=== PATIENT | female | born 1990 | race Caucasian/White ===

== ENCOUNTER 2016-09-29 21:31 | Emergency (ER) | payer OTHER ==
[~2016-09-29 21:31] MED LIST: /MOM400 PO; ACET50TA PO; ALBU17IN INH; AMOX500T PO; CETI10TA3 PO; DIPH25CA PO; GUAI10EL PO; IBUP80TA PO; PERC5TAB6 PO; PRENTAB43 PO; ZOLO50TA PO; no home meds
[2016-09-30] MEDS ORDERED: MAGNESIUM CITRATE 300 ML BTL As Ordered ONE (00:01)
--- NOTE | 2016-09-30 00:06 | EDDOCDS ---
Nurse's Notes [facility] Name: Cherelle Casillas Age: 25 yrs Sex: Female : 1990 Arrival Date: 09/29/2016 Time: 21:31 Bed TR7 Private MD: Diagnosis: Abdominal and pelvic pain-lower Presentation: 09/29 21:41 Presenting complaint: Patient states: I think I have a kidney infection, I've had pain [facility] right where my kidneys are and I keep getting chills and flushed, hurts worse when I pee and when I sit down and stand up. Acute neurological deficits are not present. Mechanism of Injury: No Mechanism of Injury. Adult Sepsis Screening: The patient does not have new or worsening altered mentation. Patient's respiratory rate is less than 22. Systolic blood pressure is greater than 100. Patient has a qSOFA score of 0- Negative Sepsis Screen. Suicide/Homicide risk assessment- the patient denies having any suicidal and/or homicidal ideations and does not present with any other emotional, behavioral or mental health complaints. 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 Transition of care: patient was not received from another setting of care. 21:41 Acuity: DEE Level 3 [facility] 21:41 Method Of Arrival: Walkin/Carried/Asstd [facility] Triage Assessment: 21:43 General: Appears in no apparent distress, comfortable, Behavior is appropriate for age, [facility] cooperative. Pain: Location: back Pain currently is 0 out of 10 on a pain scale. At worst was 5 out of 10 on a pain scale. HIV screening NA for this visit Offered previously. Respiratory: No deficits noted. Derm: Skin is pink, warm & dry. Musculoskeletal: Range of motion intact in all extremities. DIRECTOR TEEN POST: 21:43 LMP 09/22/2016 [facility] Historical: - Allergies: Aleve (Swelling); Naproxen; - PMHx: Anxiety; Depression; - PSHx: Tonsillectomy; Cholecystectomy; Tubal ligation; full teeth extraction; - Social history: Smoking status: Patient uses tobacco products, heavy tobacco smoker. No barriers to communication noted. - Family history: Not pertinent. - : The pt / caregiver states he / she is not on anticoagulants. Home medication list is obtained from the patient. - Exposure Risk Screening:: None identified. Screenin/07 00:04 Screening information is obtained from the patient. Fall risk: No risks identified. cz Assistance ADL's: requires no assistance with activities of daily living. Abuse/DV Screen: The patient / caregiver reports he/she is: not in a situation that causes fear, pain or injury. Nutritional screening: No deficits noted. home support is adequate. Assessment: 00:04 Reassessment: Patient appears in no apparent distress at this time. Patient states cz symptoms have improved. Vital Signs: 09/29 21:32 BP 154 / 81; Pulse 88; Resp 18; Temp 97.0(O); Pulse Ox 100% on R/A; Weight 85.09 kg kb5 (M); Height 5 ft. 2 in. (157.48 cm); Pain 5/10; 23:58 BP 140 / 78; Pulse 66; Resp 16; Temp 95.9(T); Pulse Ox 99% ; cz 21:32 Body Mass Index 34.31 (85.09 kg, 157.48 cm) kb5 ED Course: 21:32 Patient visited by Sukumar Mojica PCA. kb5 21:32 Patient moved to Waiting kb 21:34 Patient visited by Sukumar Mojica PCA. kb5 21:42 Triage Initiated cj 21:44 Patient moved to Pre RCE cz 22:54 Patient moved to Triage 1 jb5 22:56 Patient visited by Pauly Salazar PCA. jb5 23:[address] [facility] cc[facility] 23:06 Krishan Miramontes DO is Attending Physician. cc10 23:[address]a [address] PA-C. cc10 23:[address] Asa [address] PA-C. cc10 23:13 Patient moved to TR4 cz 23:55 Patient moved to PR2 / 26 cz 09/30 00:04 Patient moved to TR7 cz 00:04 The patient / caregiver is instructed regarding the plan of care and ED course. cz 00:04 No IV's were initiated during this patient's visit. No procedures done that require cz assistance. Administered Medications: 00:04 Drug: Magnesium Citrate 300 ml [magnesium citrate oral solution (300 mL)] Route: PO; cz Order Results: Lab Order: UA; SPEC'M 09/29/16 23:13 Test: APPEARANCE, URINE; Value: HAZY; Range: CLEAR; Status: F Test: COLOR, URINE; Value: YELLOW; Range: YELLOW; Status: F Test: PH,URINE; Value: 6.0; Range: 5.0-9.0; Units: UNITS; Status: F Test: SPECIFIC GRAVITY URINE AUTO; Value: 1.018; Range: 1.002-1.035; Status: F Test: PROTEIN, URINE AUTO; Value: NEGATIVE; Range: NEGATIVE; Units: mg/dL; Status: F Test: GLUCOSE, URINE (UA) AUTO; Value: NEGATIVE; Range: NEGATIVE; Units: mg/dL; Status: F Test: KETONE, URINE AUTO; Value: NEGATIVE; Range: NEGATIVE; Units: mg/dL; Status: F Test: UROBILINOGEN, URINE AUTO; Value: 0.2; Range: 0.0-2.0; Units: mg/dL; Status: F Test: BILIRUBIN, URINE AUTO; Value: NEGATIVE; Range: NEGATIVE; Status: F Test: NITRITE, URINE AUTO; Value: NEGATIVE; Range: NEGATIVE; Status: F Test: LEUKOCYTE ESTERASE, URINE AUTO; Value: NEGATIVE; Range: NEGATIVE; Status: F Test: BLOOD, URINE BLOOD; Value: NEGATIVE; Range: NEGATIVE; Status: F Test: WBC, URINE AUTO; Value: 0; Range: 0-3; Units: /HPF; Status: F Test: RBC, URINE AUTO; Value: 2; Range: 0-3; Units: /HPF; Status: F Test: BACTERIA, URINE AUTO; Value: NEGATIVE; Range: NEGATIVE; Status: F Test: SQUAMOUS EPITHELIAL CELL UR AU; Value: 5; Range: 0-6; Units: /HPF; Status: F Test: MUCUS, URINE; Value: SMALL; Range: NEGATIVE; Status: F Test: HYALINE CAST, URINE AUTO; Value: 0; Range: 0-1; Units: /LPF; Status: F Outcome: 09/29 23:59 Discharge ordered by Provider. cc10 09/30 00:04 Discharge Assessment: Patient awake, alert and oriented x 3. No cognitive and/or cz functional deficits noted. Patient verbalized understanding of disposition instructions. patient administered narcotics - no. The following High Risk Discharge criteria are identified: None. Discharged to home ambulatory, with friend. Condition: stable. Discharge instructions given to patient, Instructed on discharge instructions, follow up and referral plans. Demonstrated understanding of instructions, Pt was receptive of discharge instructions/ teaching. No special radiology studies were completed. Property :Personal belongings accompany Pt. 00:05 Patient left the ED. veronique Signatures: Roni Pavon, RN RN Pauly Yo, ELEMENTARY SCHOOL TEACHER'S AIDE ELEMENTARY SCHOOL TEACHER'S AIDE jb5 Sukumar Mojica, ELEMENTARY SCHOOL TEACHER'S AIDE ELEMENTARY SCHOOL TEACHER'S AIDE kb5 Evonne Vidal RN RN Asa Herrera, PA-C PA-C cc10 MTDD
--- NOTE | 2016-09-30 00:06 | EDDOCDS ---
Physician Documentation [facility] Name: Cherelle Casillas Age: 25 yrs Sex: Female : 1990 Arrival Date: 09/29/2016 Time: 21:31 Bed TR7 Private MD: Disposition: 09/29/16 23:59 Discharged to Home/Self Care. Impression: Abdominal and pelvic pain - lower. - Condition is Stable. - Discharge Instructions: Constipation, Adult. - Medication Reconciliation form. - Follow up: Emergency Department; When: As needed; Reason: Worsening of conditions. Follow up: Private Physician; When: Call to arrange an appointment; Reason: Wound/Symptom Recheck, Recheck today's complaints, Worsening of conditions, Continuance of care. - Problem is new. - Symptoms are unchanged. Historical: - Allergies: Aleve (Swelling); Naproxen; - PMHx: Anxiety; Depression; - PSHx: Tonsillectomy; Cholecystectomy; Tubal ligation; full teeth extraction; - Social history: Smoking status: Patient uses tobacco products, heavy tobacco smoker. No barriers to communication noted. - Family history: Not pertinent. - : The pt / caregiver states he / she is not on anticoagulants. Home medication list is obtained from the patient. - Exposure Risk Screening:: None identified. 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 2 in. (157.48 cm); Pain 5/10; 23:58 BP 140 / 78; Pulse 66; Resp 16; Temp 95.9(T); Pulse Ox 99% ; cz 21:32 Body Mass Index 34.31 (85.09 kg, 157.48 cm) kb5 MDM: 23:11 UA Ordered. EDMS 23:12 Abdomen, Flat\E\Upright,PA Chest Ordered. EDMS 23:55 UA Reviewed. cc10 23:58 Magnesium Citrate Liquid 300 ml PO once; Dispense home with pt. ordered. cc10 09/30 00:04 Financial registration complete. [facility] Administered Medications: 00:04 Drug: Magnesium Citrate 300 ml [magnesium citrate oral solution (300 mL)] Route: PO; cz Signatures: Dispatcher [employer] Roni Owen, EUGENE RN Evonne Kebede RN RN Asa Herrera PA-C PA-C [facility] Hortencia De Santiago [facility] MTDD
--- NOTE | 2016-09-30 08:39 | REP ---
Abdominal series: Three views. History: Abdominal pain. Comparison chest x-ray August 11, 2013. Findings: Upright chest radiograph is normal. There is no evidence of infiltrate or free subdiaphragmatic air. Heart size is normal. Supine and erect views of the abdomen show tubal ligation clamps bilaterally in the pelvis and clips in the right upper quadrant of the abdomen. The bowel gas pattern is normal with air and stool in a nondistended colon. Psoas margins and flank stripes are intact. No mass, organomegaly or pathologic calcification is seen. Impression: Status post cholecystectomy in bilateral tubal ligation clips. Otherwise negative abdominal series. Signed by Andrzej Russell MD 09/30/2016 08:48 A
--- NOTE | 2016-10-03 10:14 | EDDOCDS ---
Nurse's Notes [facility] Name: Cherelle Casillas Age: 25 yrs Sex: Female : 1990 Arrival Date: 09/29/2016 Time: 21:31 Bed TR7 Private MD: Diagnosis: Abdominal and pelvic pain-lower Presentation: 09/29 21:41 Presenting complaint: Patient states: I think I have a kidney infection, I've had pain [facility] right where my kidneys are and I keep getting chills and flushed, hurts worse when I pee and when I sit down and stand up. Acute neurological deficits are not present. Mechanism of Injury: No Mechanism of Injury. Adult Sepsis Screening: The patient does not have new or worsening altered mentation. Patient's respiratory rate is less than 22. Systolic blood pressure is greater than 100. Patient has a qSOFA score of 0- Negative Sepsis Screen. Suicide/Homicide risk assessment- the patient denies having any suicidal and/or homicidal ideations and does not present with any other emotional, behavioral or mental health complaints. 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 Transition of care: patient was not received from another setting of care. 21:41 Acuity: DEE Level 3 [facility] 21:41 Method Of Arrival: Walkin/Carried/Asstd [facility] Triage Assessment: 21:43 General: Appears in no apparent distress, comfortable, Behavior is appropriate for age, [facility] cooperative. Pain: Location: back Pain currently is 0 out of 10 on a pain scale. At worst was 5 out of 10 on a pain scale. HIV screening NA for this visit Offered previously. Respiratory: No deficits noted. Derm: Skin is pink, warm & dry. Musculoskeletal: Range of motion intact in all extremities. 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 No barriers to communication noted. - Family history: Not pertinent. - : The pt / caregiver states he / she is not on anticoagulants. Home medication list is obtained from the patient. - Exposure Risk Screening:: None identified. Screenin/07 00:04 Screening information is obtained from the patient. Fall risk: No risks identified. cz Assistance ADL's: requires no assistance with activities of daily living. Abuse/DV Screen: The patient / caregiver reports he/she is: not in a situation that causes fear, pain or injury. Nutritional screening: No deficits noted. home support is adequate. Assessment: 00:04 Reassessment: Patient appears in no apparent distress at this time. Patient states cz symptoms have improved. Vital Signs: 09/29 21:32 BP 154 / 81; Pulse 88; Resp 18; Temp 97.0(O); Pulse Ox 100% on R/A; Weight 85.09 kg kb5 (M); Height 5 ft. 2 in. (157.48 cm); Pain 5/10; 23:58 BP 140 / 78; Pulse 66; Resp 16; Temp 95.9(T); Pulse Ox 99% ; cz 21:32 Body Mass Index 34.31 (85.09 kg, 157.48 cm) kb5 ED Course: 21:32 Patient visited by Sukumar Mojica PCA. kb5 21:32 Patient moved to Waiting kb5 21:34 Patient visited by Sukumar Mojica PCA. kb5 21:42 Triage Initiated cjh 21:44 Patient moved to Pre RCE cz 22:54 Patient moved to Triage 1 jb5 22:56 Patient visited by aPuly Salazar PCA. jb5 23:[address] [facility] cc[facility] 23:06 Krishan Miramontes DO is Attending Physician. cc10 23:[address] Asa [address] PA-C. cc10 23:06 Patient visited [address] Asa [address] PA-C. cc10 23:13 Patient moved to TR4 cz 23:55 Patient moved to PR2 / 26 cz 09/30 00:04 Patient moved to TR7 cz 00:04 The patient / caregiver is instructed regarding the plan of care and ED course. cz 00:04 No IV's were initiated during this patient's visit. No procedures done that require cz assistance. 02:56 [facility] Payment Agreement was scanned into [employer] and attached to record. sl 08:10 T-Sheet-- Draft Copy was scanned into MEDHOST and attached to record. [facility] 08:42 Abdomen, Flat\E\Upright,PA Chest Returned. EDMS Administered Medications: 00:04 Drug: Magnesium Citrate 300 ml [magnesium citrate oral solution (300 mL)] Route: PO; cz Order Results: Lab Order: UA; SPEC'M 09/29/16 23:13 Test: APPEARANCE, URINE; Value: HAZY; Range: CLEAR; Status: F Test: COLOR, URINE; Value: YELLOW; Range: YELLOW; Status: F Test: PH,URINE; Value: 6.0; Range: 5.0-9.0; Units: UNITS; Status: F Test: SPECIFIC GRAVITY URINE AUTO; Value: 1.018; Range: 1.002-1.035; Status: F Test: PROTEIN, URINE AUTO; Value: NEGATIVE; Range: NEGATIVE; Units: mg/dL; Status: F Test: GLUCOSE, URINE (UA) AUTO; Value: NEGATIVE; Range: NEGATIVE; Units: mg/dL; Status: F Test: KETONE, URINE AUTO; Value: NEGATIVE; Range: NEGATIVE; Units: mg/dL; Status: F Test: UROBILINOGEN, URINE AUTO; Value: 0.2; Range: 0.0-2.0; Units: mg/dL; Status: F Test: BILIRUBIN, URINE AUTO; Value: NEGATIVE; Range: NEGATIVE; Status: F Test: NITRITE, URINE AUTO; Value: NEGATIVE; Range: NEGATIVE; Status: F Test: LEUKOCYTE ESTERASE, URINE AUTO; Value: NEGATIVE; Range: NEGATIVE; Status: F Test: BLOOD, URINE BLOOD; Value: NEGATIVE; Range: NEGATIVE; Status: F Test: WBC, URINE AUTO; Value: 0; Range: 0-3; Units: /HPF; Status: F Test: RBC, URINE AUTO; Value: 2; Range: 0-3; Units: /HPF; Status: F Test: BACTERIA, URINE AUTO; Value: NEGATIVE; Range: NEGATIVE; Status: F Test: SQUAMOUS EPITHELIAL CELL UR AU; Value: 5; Range: 0-6; Units: /HPF; Status: F Test: MUCUS, URINE; Value: SMALL; Range: NEGATIVE; Status: F Test: HYALINE CAST, URINE AUTO; Value: 0; Range: 0-1; Units: /LPF; Status: F Radiology Order: Abdomen, Flat\E\Upright,PA Chest Test: Abdomen, Flat\E\Upright,PA Chest REASON FOR EXAMINATION: Abdomen Pain; Abdominal series: Three views.; ; History: Abdominal pain. Comparison chest x-ray August 11, 2013.; ; Findings: Upright chest radiograph is normal. There is no evidence of; infiltrate or free subdiaphragmatic air. Heart size is normal.; ; Supine and erect views of the abdomen show tubal ligation clamps bilaterally in; the pelvis and clips in the right upper quadrant of the abdomen. The bowel gas; pattern is normal with air and stool in a nondistended colon. Psoas margins and; flank stripes are intact. No mass, organomegaly or pathologic calcification is; seen.; ; Impression:; ; Status post cholecystectomy in bilateral tubal ligation clips. Otherwise; negative abdominal series.; ; ; Signed by; Andrzej uRssell MD 09/30/2016 08:48 A; Outcome: 09/29 23:59 Discharge ordered by Provider. cc10 09/30 00:04 Discharge Assessment: Patient awake, alert and oriented x 3. No cognitive and/or cz functional deficits noted. Patient verbalized understanding of disposition instructions. patient administered narcotics - no. The following High Risk Discharge criteria are identified: None. Discharged to home ambulatory, with friend. Condition: stable. Discharge instructions given to patient, Instructed on discharge instructions, follow up and referral plans. Demonstrated understanding of instructions, Pt was receptive of discharge instructions/ teaching. No special radiology studies were completed. Property :Personal belongings accompany Pt. 00:05 Patient left the ED. cz Signatures: Dispatcher Med[employer] EDMS Roni Pavon RN RN cz Baker, Janet, JITTERBUG OPERATOR JITTERBUG OPERATOR jb5 Sukumar Mojica, JITTERBUG OPERATOR JITTERBUG OPERATOR kb5 Evonne Vidal RN RN cjh Coniski, Colin, PA-C PA-C cc10 Hortencia De Santiago Sarah seh Chart Complete MTDD
--- NOTE | 2016-10-03 10:14 | EDDOCDS ---
Physician Documentation Name: Cherelle Casillas Age: 25 yrs Sex: Female : 1990 Arrival Date: 09/29/2016 Time: 21:31 Bed TR7 Private MD: Disposition: 09/29/16 23:59 Discharged to Home/Self Care. Impression: Abdominal and pelvic pain - lower. - Condition is Stable. - Discharge Instructions: Constipation, Adult. - Medication Reconciliation form. - Follow up: Emergency Department; When: As needed; Reason: Worsening of conditions. Follow up: Private Physician; When: Call to arrange an appointment; Reason: Wound/Symptom Recheck, Recheck today's complaints, Worsening of conditions, Continuance of care. - Problem is new. - Symptoms are unchanged. Historical: - Allergies: Aleve (Swelling); Naproxen; - PMHx: Anxiety; Depression; - PSHx: Tonsillectomy; Cholecystectomy; Tubal ligation; full teeth extraction; - Social history: Smoking status: Patient uses tobacco products, heavy tobacco smoker. No barriers to communication noted. - Family history: Not pertinent. - : The pt / caregiver states he / she is not on anticoagulants. Home medication list is obtained from the patient. - Exposure Risk Screening:: None identified. 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 2 in. (157.48 cm); Pain 5/10; 23:58 BP 140 / 78; Pulse 66; Resp 16; Temp 95.9(T); Pulse Ox 99% ; cz 21:32 Body Mass Index 34.31 (85.09 kg, 157.48 cm) kb5 MDM: 23:11 UA Ordered. EDMS 23:12 Abdomen, Flat\E\Upright,PA Chest Ordered. EDMS 23:55 UA Reviewed. cc10 23:58 Magnesium Citrate Liquid 300 ml PO once; Dispense home with pt. ordered. cc10 09/30 00:04 Financial registration complete. [facility] 02:56 [facility] Payment Agreement was scanned into MEDHOST and attached to record. [facility] 08:10 T-Sheet-- Draft Copy was scanned into [employer] and attached to record. [facility] Administered Medications: 00:04 Drug: Magnesium Citrate 300 ml [magnesium citrate oral solution (300 mL)] Route: PO; cz Signatures: Dispatcher [employer] Roni Owen RN RN cz Hafner, Jane, RN RN cjh Coniski, Colin, PA-C PAGreg cc Hortencia De Santiago [facility] Varsha Olivier se The chart was reviewed and I authenticate all verbal orders and agree with the evaluation and treatment provided.Attachments: 02:56 [facility] Payment Agreement [facility] 08:10 T-Sheet-- Draft Copy [facility] Chart Complete MTDD
--- NOTE | 2016-10-03 10:14 | EDDOCDS ---
Physician Documentation [facility] Name: Cherelle Casillas Age: 25 yrs Sex: Female : 1990 Arrival Date: 09/29/2016 Time: 21:31 Bed TR7 Private MD: Disposition: 09/29/16 23:59 Discharged to Home/Self Care. Impression: Abdominal and pelvic pain - lower. - Condition is Stable. - Discharge Instructions: Constipation, Adult. - Medication Reconciliation form. - Follow up: Emergency Department; When: As needed; Reason: Worsening of conditions. Follow up: Private Physician; When: Call to arrange an appointment; Reason: Wound/Symptom Recheck, Recheck today's complaints, Worsening of conditions, Continuance of care. - Problem is new. - Symptoms are unchanged. Historical: - Allergies: Aleve (Swelling); Naproxen; - PMHx: Anxiety; Depression; - PSHx: Tonsillectomy; Cholecystectomy; Tubal ligation; full teeth extraction; - Social history: Smoking status: Patient uses tobacco products, heavy tobacco smoker. No barriers to communication noted. - Family history: Not pertinent. - : The pt / caregiver states he / she is not on anticoagulants. Home medication list is obtained from the patient. - Exposure Risk Screening:: None identified. 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 2 in. (157.48 cm); Pain 5/10; 23:58 BP 140 / 78; Pulse 66; Resp 16; Temp 95.9(T); Pulse Ox 99% ; cz 21:32 Body Mass Index 34.31 (85.09 kg, 157.48 cm) kb5 MDM: 23:11 UA Ordered. EDMS 23:12 Abdomen, Flat\E\Upright,PA Chest Ordered. EDMS 23:55 UA Reviewed. cc10 23:58 Magnesium Citrate Liquid 300 ml PO once; Dispense home with pt. ordered. cc10 09/30 00:04 Financial registration complete. [facility] 02:56 [facility] Payment Agreement was scanned into MEDHOST and attached to record. [facility] 08:10 T-Sheet-- Draft Copy was scanned into [employer] and attached to record. [facility] Administered Medications: 00:04 Drug: Magnesium Citrate 300 ml [magnesium citrate oral solution (300 mL)] Route: PO; cz Signatures: Dispatcher [employer]Host Roni Owen RN RN cz Hafner, Jane, RN RN cjh Coniski, Colin, PA-C PAGreg cc Hortencia De Santiago [facility] Varsha Olivier se The chart was reviewed and I authenticate all verbal orders and agree with the evaluation and treatment provided.Attachments: 02:56 [facility] Payment Agreement [facility] 08:10 T-Sheet-- Draft Copy [facility] Chart Complete MTDD
== END 2016-09-30 00:05 | disposition home or self-care (01) ==
LOC: M ED 21:31
DX: F41.9 Anxiety disorder, unspecified (principal); F32.9 Major depressive disorder, single episode, unspecified; Z72.0 Tobacco use

== ENCOUNTER 2016-12-21 19:17 | Emergency (ER) | payer OTHER ==
[~2016-12-21] VITALS: Ht 160 cm; Wt 83.9 kg
[2016-12-21 19:18] VITALS: BP 148/88
[2016-12-21 22:02] LABS: BASO % 0.5 % (0.0-1.0); EOS # 0.6 K/mm3 (0.0-0.50); EOS % 6.2 % (0.0-3.0); LARGE UNSTAINED CELL # 0.2 K/mm3 (0.0-0.4); LARGE UNSTAINED CELL % 2.4 % (0.0-4.0); LYMPH # 3.5 K/mm3 (1.5-6.5); LYMPH % 37.6 % (24.0-44.0); MEAN CORPUSCULAR HEMOGLOBIN 27.5 pg (27.0-33.0); MEAN CORPUSCULAR HGB CONC 32.6 g/dl (32.0-36.5); MEAN CORPUSCULAR VOLUME 84.4 fl (80.0-96.0); MONO # 0.5 K/mm3 (0.0-0.8); MONO % 5.5 % (0.0-5.0); NEUTROPHILS # 4.2 K/mm3 (1.8-7.7); NEUTROPHILS % 47.7 % (36.0-66.0); PLATELET COUNT, AUTOMATED 247 k/mm3 (150-450); RED CELL DISTRIBUTION WIDTH 13.4 % (11.5-14.5); WHITE BLOOD COUNT 8.8 K/mm3 (4.0-10.0)
[2016-12-21 22:04] LABS: INR 0.94
[2016-12-21 22:16] LABS: ANION GAP 6 MEQ/L (8-16); BLOOD UREA NITROGEN 13 MG/DL (7-18); CALCIUM LEVEL 8.9 MG/DL (8.5-10.1); CARBON DIOXIDE LEVEL 27 MEQ/L (21-32); CHLORIDE LEVEL 108 MEQ/L (98-107); GLOMERULAR FILTRATION RATE > 60.0 (>60); GLUCOSE, FASTING 94 MG/DL (70-105); POTASSIUM SERUM 4.1 MEQ/L (3.5-5.1); SODIUM LEVEL 141 MEQ/L (136-145)
--- NOTE | 2016-12-22 08:04 | REP ---
Clinical: Chest pain . Comparison: 09/29/2016 . Technique: PA and lateral. Findings: The mediastinum and cardiac silhouette are normal. The lung luna are clear and without acute consolidation, effusion, or pneumothorax. The skeletal structures are intact and normal. Impression: 1. No acute cardiopulmonary process. Signed by Elliot Gonzalez MD 12/22/2016 07:55 A
--- NOTE | 2016-12-22 16:37 | ECGEPIP ---
Stationary ECG Study [facility] - ED Test Date: 2016-12-21 Pat Name: BROOKE LESLIE Department: Room: - Gender: F Replenisher: tammy : 1990 Requested By: HU Goss Order Number: [id number] Reading MD: Varsha Bose Measurements Intervals [place] Rate: 56 P: 54 MI: 144 QRS: 57 QRSD: 114 T: 44 QT: 408 QTc: 397 Interpretive Statements SINUS BRADYCARDIA WITH MARKED SINUS ARRHYTHMIA INCOMPLETE RIGHT BUNDLE BRANCH BLOCK SIMILAR 05/20/12 Electronically Signed On 12-22-2016 16:37:10 EDT by Varsha Bose
== END 2016-12-21 23:48 | disposition home or self-care (01) ==
LOC: M ED 21:30
DX: R07.89 Other chest pain (principal)

== ENCOUNTER 2017-04-14 15:33 | Emergency (ER) | payer MEDICAID, OTHER ==
[~2017-04-14] VITALS: Ht 160 cm; Wt 80.0 kg
[~2017-04-14 15:33] MED LIST changes: +PERC5TAB12 PO; -PERC5TAB6 PO
[2017-04-14 16:20] LABS: BASO % 0.5 % (0.0-1.0); EOS # 0.3 K/mm3 (0.0-0.50); EOS % 3.6 % (0.0-3.0); LARGE UNSTAINED CELL # 0.2 K/mm3 (0.0-0.4); LARGE UNSTAINED CELL % 2.3 % (0.0-4.0); LYMPH # 2.6 K/mm3 (1.5-6.5); MEAN CORPUSCULAR HEMOGLOBIN 29.2 pg (27.0-33.0); MEAN CORPUSCULAR HGB CONC 34.1 g/dl (32.0-36.5); MEAN CORPUSCULAR VOLUME 85.5 fl (80.0-96.0); MONO # 0.4 K/mm3 (0.0-0.8); MONO % 5.5 % (0.0-5.0); NEUTROPHILS # 4.7 K/mm3 (1.8-7.7); NEUTROPHILS % 58.1 % (36.0-66.0); PLATELET COUNT, AUTOMATED 243 k/mm3 (150-450); RED CELL DISTRIBUTION WIDTH 13.3 % (11.5-14.5)
[2017-04-14 16:41] LABS: ANION GAP 9 MEQ/L (8-16); BLOOD UREA NITROGEN 12 MG/DL (7-18); CALCIUM LEVEL 9.1 MG/DL (8.5-10.1); CARBON DIOXIDE LEVEL 25 MEQ/L (21-32); CHLORIDE LEVEL 107 MEQ/L (98-107); CREATININE FOR GFR 0.82 MG/DL (0.55-1.02); GLOMERULAR FILTRATION RATE > 60.0 (>60); GLUCOSE, FASTING 83 MG/DL (70-105); POTASSIUM SERUM 4.1 MEQ/L (3.5-5.1); SODIUM LEVEL 141 MEQ/L (136-145)
[2017-04-14] MEDS ORDERED: MACR100C43 PO (17:43)
[2017-04-14] MEDS ORDERED: PYRI1TAB5 PO (17:43)
[2017-04-14 17:54] VITALS: BP 135/86
--- NOTE | 2017-04-14 18:20 | REPUSA ---
CLINICAL HISTORY: Pelvic pain. TECHNIQUE: Realtime sonographic images were obtained in multiple projections. COMMENTS: LMP on 03/18/2017, 3, para 3. Uterus is within normal limits. Uterine size: 8.1; CC length - 4.1 AP height - 6.1 TRV width. AP endometrial thickness 9.7 mm, and is anteverted. Right ovary measures 3.97 CC, 7.31 AP, 7.3 TRV (in cm). 1.5 cm right ovarian hemorrhagic follicular c yst is noted. Abnormality - 1.5 x 1.2 x 1.1 cm. Left ovary measures 2.7 CC, 1.8 AP, 2.1 TRV (in cm). Cul-de-sac has trace free fluid. Bladder measures 5.7 x 4.7 x 8.8 cm. IMPRESSION: 1.5 cm right ovarian hemorrhagic follicular cyst. Trace FF. Thank you for your kind referral of this patient. We appreciate the opportunity to participate in th is patient's care.
--- NOTE | 2017-04-14 20:10 | ECGEPIP ---
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
== END 2017-04-14 17:59 | disposition home or self-care (01) ==
LOC: M ED 15:33
DX: N39.0 Urinary tract infection, site not specified (principal); R31.9 Hematuria, unspecified; N83.209 Unspecified ovarian cyst, unspecified side; R10.2 Pelvic and perineal pain; F17.210 Nicotine dependence, cigarettes, uncomplicated; Z88.6 Allergy status to analgesic agent

== ENCOUNTER 2017-11-07 16:39 | Emergency (ER) | payer OTHER ==
[2017-11-07 18:52] LABS: BASO % 0.6 % (0.0-1.0); EOS # 0.7 10^3/uL (0.0-0.50); EOS % 10.1 % (0.0-3.0); HEMOGLOBIN 14.6 g/dl (12.0-16.0); IMMATURE GRANULOCYTE % 0.2 % (0-3.0); LYMPH # 2.3 10^3/uL (1.5-6.5); LYMPH % 34.8 % (24.0-44.0); MEAN CORPUSCULAR HEMOGLOBIN 29.3 pg (27.0-33.0); MEAN CORPUSCULAR HGB CONC 34.8 g/dl (32.0-36.5); MEAN CORPUSCULAR VOLUME 84.2 fl (80.0-96.0); MONO # 0.7 10^3/uL (0.0-0.8); MONO % 10.1 % (0.0-5.0); NEUTROPHILS # 2.9 10^3/uL (1.8-7.7); NEUTROPHILS % 44.2 % (36.0-66.0); PLATELET COUNT, AUTOMATED 249 10^3/uL (150-450); RED BLOOD COUNT 4.99 10^6/uL (4.00-5.40); WHITE BLOOD COUNT 6.6 10^3/uL (4.0-10.0)
[2017-11-07 19:10] LABS: D-DIMER QUANT 277.4 ng/ml (<500)
[2017-11-07 19:25] LABS: ANION GAP 7 MEQ/L (8-16); BLOOD UREA NITROGEN 7 MG/DL (7-18); CALCIUM LEVEL 8.6 MG/DL (8.5-10.1); CARBON DIOXIDE LEVEL 25 MEQ/L (21-32); CHLORIDE LEVEL 111 MEQ/L (98-107); CPK CREATINE PHOSPHOKINASE 74 U/L (26-192); CREATININE FOR GFR 0.69 MG/DL (0.55-1.30); GLOMERULAR FILTRATION RATE > 60.0 (>60); GLUCOSE, FASTING 85 MG/DL (70-100); SODIUM LEVEL 143 MEQ/L (136-145); TROPONIN I < 0.02 NG/ML (< 0.10)
[2017-11-07 19:30] LABS: HCG, SERUM QUANTITATIVE < 1.0 MIU/ML; MB/CK RELATIVE INDEX 1.35 (< OR =4)
[2017-11-07 21:47] LABS: CPK CREATINE PHOSPHOKINASE 69 U/L (26-192); MB/CK RELATIVE INDEX 1.44 (< OR =4); TROPONIN I < 0.02 NG/ML (< 0.10)
== END 2017-11-07 22:15 | disposition home or self-care (01) ==
LOC: M ED 16:39
DX: R07.89 Other chest pain (principal); M79.602 Pain in left arm; F41.9 Anxiety disorder, unspecified; Z82.49 Family history of ischemic heart disease and other diseases of the circulatory system; Z88.8 Allergy status to other drugs, medicaments and biological substances; F17.210 Nicotine dependence, cigarettes, uncomplicated
CPT/HCPCS: 71046

== ENCOUNTER 2018-03-09 00:56 | Emergency (ER) | payer OTHER ==
[2018-03-09 01:30] LABS: KETONE, URINE AUTO RFX NEGATIVE (NEGATIVE); LEUKOCYTE ESTERASE UR AUTO RFX NEGATIVE (NEGATIVE); NITRITE, URINE AUTO RFX NEGATIVE (NEGATIVE); RBC, URINE AUTO RFX 0 /HPF (0-3); SPECIFIC GRAVITY UR AUTO RFX 1.003 (1.002-1.035); SQUAM EPITHELIAL CELL UR AURFX 0 /HPF (0-6); WBC, URINE AUTO RFX 0 /HPF (0-3)
== END 2018-03-09 05:43 | disposition left against medical advice (07) ==
LOC: M ED 00:56
DX: R21 Rash and other nonspecific skin eruption (principal); R42 Dizziness and giddiness; Z53.21 Procedure and treatment not carried out due to patient leaving prior to being seen by health care provider

== ENCOUNTER 2018-05-14 20:22 | Emergency (ER) | payer OTHER ==
[2018-05-14] MEDS: LIDOCAINE W/EPINEPHRINE 1% 20ML VIAL SC (21:42)
[2018-05-14] MEDS: ADACEL/BOOSTRIX VACCINE (DIPHTH/PERTUSS/ACELL/TETANUS)0.5ML SYR (90715) IM (21:42)
== END 2018-05-14 22:43 | disposition home or self-care (01) ==
LOC: M ED 20:22
DX: S71.111A Laceration without foreign body, right thigh, initial encounter (principal); W25.XXXA Contact with sharp glass, initial encounter; Y92.098 Other place in other non-institutional residence as the place of occurrence of the external cause; F17.200 Nicotine dependence, unspecified, uncomplicated
CPT/HCPCS: 90715

== ENCOUNTER 2018-09-21 19:09 | Emergency (ER) | payer OTHER ==
[~2018-09-21] VITALS: Ht 160 cm; Wt 85.5 kg
[2018-09-21 19:09] VITALS: BP 162/80
[~2018-09-21 19:09] MED LIST changes: +IBUP-1114 PO; +MACR100C43 PO; +MAPA500T2 PO; +PYRI1TAB5 PO; +TYLE500T78 PO
[2018-09-21] MEDS ORDERED: valACYclovir HCL 500 MG TAB PO ONE (20:30)
[2018-09-21] MEDS ORDERED: VALT1TAB PO (20:36)
[2018-09-21] MEDS ORDERED: AUGM875T28 PO (20:36)
== END 2018-09-21 20:40 | disposition home or self-care (01) ==
LOC: M ED 19:09
DX: B02.9 Zoster without complications (principal); F41.9 Anxiety disorder, unspecified; Z88.6 Allergy status to analgesic agent

== ENCOUNTER 2018-12-10 11:20 | Emergency (ER) | payer OTHER ==
[~2018-12-10] VITALS: Ht 160 cm; Wt 87.7 kg
[~2018-12-10 11:20] MED LIST changes: +AUGM875T28 PO; +VALT1TAB PO
[2018-12-10 12:54] LABS: URINE PREG TEST NEGATIVE (NEGATIVE)
--- NOTE | 2018-12-10 14:04 | REP ---
Chest x-ray: Two views. History: Left-sided chest and back pain. . Comparison study: November 07, 2017 . Findings: The lungs are well inflated and free of infiltrate. The pleural angles are sharp. The heart size is normal. Pulmonary vasculature is not increased. No significant bony abnormality is seen. There are clips in right upper quadrant of the abdomen. Impression: Negative chest x-ray. Electronically Signed by Andrzej Russell MD 12/10/2018 01:56 P
[2018-12-10 14:22] LABS: BASO % 0.6 % (0.0-1.0); EOS # 0.3 10^3/uL (0.0-0.50); EOS % 4.8 % (0.0-3.0); HEMATOCRIT 44.1 % (36.0-47.0); HEMOGLOBIN 14.8 g/dl (12.0-15.5); LYMPH # 2.2 10^3/uL (1.5-6.5); MEAN CORPUSCULAR HEMOGLOBIN 28.5 pg (27.0-33.0); MEAN CORPUSCULAR HGB CONC 33.6 g/dl (32.0-36.5); MEAN CORPUSCULAR VOLUME 84.8 fl (80.0-96.0); MONO # 0.4 10^3/uL (0.0-0.8); MONO % 6.2 % (0.0-5.0); NEUTROPHILS % 57.3 % (36.0-66.0); PLATELET COUNT, AUTOMATED 276 10^3/uL (150-450); WHITE BLOOD COUNT 7.1 10^3/uL (4.0-10.0)
[2018-12-10 14:54] LABS: BLOOD UREA NITROGEN 10 MG/DL (7-18); CARBON DIOXIDE LEVEL 27 MEQ/L (21-32); CHLORIDE LEVEL 109 MEQ/L (98-107); CK-MB VALUE MASS < 1.0 NG/ML (<3.6); CPK CREATINE PHOSPHOKINASE 73 U/L (26-192); CREATININE FOR GFR 0.71 MG/DL (0.55-1.30); GLOMERULAR FILTRATION RATE > 60.0 (>60); GLUCOSE, FASTING 78 MG/DL (70-100); MB/CK RELATIVE INDEX 1.37 (< OR =4); POTASSIUM SERUM 4.7 MEQ/L (3.5-5.1); SODIUM LEVEL 141 MEQ/L (136-145); TROPONIN I < 0.02 NG/ML (< 0.10)
[2018-12-10] MEDS ORDERED: IBUP1TAB7 PO (15:03)
[2018-12-10 15:12] VITALS: BP 111/65
--- NOTE | 2018-12-10 15:20 | ECGEPIP ---
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
== END 2018-12-10 15:13 | disposition home or self-care (01) ==
LOC: M ED 11:20
DX: M54.6 Pain in thoracic spine (principal); F41.9 Anxiety disorder, unspecified; R51 Headache; Z87.440 Personal history of urinary (tract) infections; Z88.8 Allergy status to other drugs, medicaments and biological substances; F17.200 Nicotine dependence, unspecified, uncomplicated; Z82.49 Family history of ischemic heart disease and other diseases of the circulatory system

== ENCOUNTER → 2019-02-21 | Outpatient (CLI) | payer OTHER ==
[~2019-02-21] MED LIST changes: -/MOM400 PO; -ACET50TA PO; -GUAI10EL PO; +IBUP1TAB7 PO; +MAPA500T17 PO; +MILK10SU PO; +[UNRECOGNIZED DRUG - CODE] PO
--- NOTE | 2019-02-21 19:28 | REP ---
Clinical: Trauma. Technique: Bird and bilateral lateral views of the nasal bones. Findings: Nasal septum is midline. Nasal bones appear intact without acute fracture or dislocation. Overlying soft tissues are grossly unremarkable. Impression: No acute nasal bone fracture identified. Electronically Signed by Elliot Gonzalez MD 02/21/2019 07:20 P
== END ==
LOC: M WUC 19:00
PROVIDERS: ATTEND Physician Assistant
DX: S00.33XA Contusion of nose, initial encounter (principal); X58.XXXA Exposure to other specified factors, initial encounter; Y92.9 Unspecified place or not applicable

== ENCOUNTER 2019-05-24 20:28 | Emergency (ER) | payer OTHER ==
[~2019-05-24] VITALS: Ht 160 cm; Wt 87.3 kg
[2019-05-24] MEDS ORDERED: ACET-683 PO (21:30)
[2019-05-24 22:21] LABS: BASO # 0.1 10^3/uL (0.0-0.2); BASO % 0.7 % (0.0-1.0); EOS # 0.5 10^3/uL (0.0-0.50); HEMATOCRIT 42.4 % (36.0-47.0); HEMOGLOBIN 14.7 g/dl (12.0-15.5); LYMPH # 2.8 10^3/uL (1.5-6.5); MEAN CORPUSCULAR HEMOGLOBIN 30.2 pg (27.0-33.0); MEAN CORPUSCULAR HGB CONC 34.7 g/dl (32.0-36.5); MEAN CORPUSCULAR VOLUME 87.1 fl (80.0-96.0); MONO # 0.6 10^3/uL (0.0-0.8); MONO % 7.3 % (0.0-5.0); NEUTROPHILS # 4.5 10^3/uL (1.8-7.7); NEUTROPHILS % 52.8 % (36.0-66.0); PLATELET COUNT, AUTOMATED 246 10^3/uL (150-450); RED BLOOD COUNT 4.87 10^6/uL (4.00-5.40); WHITE BLOOD COUNT 8.5 10^3/uL (4.0-10.0)
[2019-05-24 22:34] VITALS: BP 123/81
--- NOTE | 2019-05-24 23:06 | REPVR ---
EXAM: US Pelvis Complete, Transabdominal EXAM DATE/TIME: 05/24/2019 10:40 PM CLINICAL HISTORY: 28 years old, female; Pelvic pain; Additional info: Pelvic pain unspecified TECHNIQUE: Imaging protocol: Real-time transabdominal pelvic ultrasound with image documentation. Complete exam. COMPARISON: US PELVIC NON-OB COMPLETE 04/14/2017 4:52 PM FINDINGS: Uterus/cervix: Uterus measures 8.2 x 4.4 x 5.8 cm in size. No focal uterine mass. Endometrial stripe appears homogeneous, measuring 10 mm in thickness. Right adnexa: Right ovary measures 2.5 x 3.1 x 2.1 cm in size. No dominant mass or cyst. Normal Doppler flow in the right ovary. Left adnexa: Left ovary measures 2 x 2 by 2 cm in size. No dominant mass or cyst. Normal Doppler flow in the right ovary. Free fluid: No abnormal volume of free fluid within the pelvis. IMPRESSION: Unremarkable pelvic ultrasound. Electronically signed by: Job Cano On 05/24/2019 23:05:45 PM
== END 2019-05-24 23:28 | disposition home or self-care (01) ==
LOC: M ED 20:28
DX: N94.6 Dysmenorrhea, unspecified (principal); Z88.8 Allergy status to other drugs, medicaments and biological substances; F17.210 Nicotine dependence, cigarettes, uncomplicated

== ENCOUNTER → 2019-12-26 | Outpatient (CLI) | payer OTHER ==
[~2019-12-26] MED LIST changes: +ACET-683 PO
== END ==
LOC: M LABSMTC 10:49
PROVIDERS: ATTEND Family Medicine
DX: Z11.59 Encounter for screening for other viral diseases (principal); Z20.828 Contact with and (suspected) exposure to other viral communicable diseases

== ENCOUNTER 2020-07-02 19:11 | Emergency (ER) | payer OTHER ==
[~2020-07-02] VITALS: Ht 160 cm; Wt 95.0 kg
[2020-07-02] MEDS ORDERED: AMOX875T PO (19:20)
[2020-07-02 19:57] LABS: BASO # 0.1 10^3/uL (0.0-0.2); BASO % 0.6 % (0.0-1.0); EOS # 0.4 10^3/uL (0.0-0.5); EOS % 4.1 % (0.0-3.0); HEMATOCRIT 43.2 % (36.0-47.0); HEMOGLOBIN 13.9 g/dl (12.0-15.5); LYMPH # 2.6 10^3/uL (1.5-5.0); LYMPH % 24.5 % (24.0-44.0); MEAN CORPUSCULAR HEMOGLOBIN 28.1 pg (27.0-33.0); MEAN CORPUSCULAR HGB CONC 32.2 g/dl (32.0-36.5); MEAN CORPUSCULAR VOLUME 87.4 fl (80.0-96.0); MONO # 0.7 10^3/uL (0.0-0.8); MONO % 6.7 % (0.0-5.0); NEUTROPHILS # 6.9 10^3/uL (1.5-8.5); NEUTROPHILS % 63.9 % (36.0-66.0); PLATELET COUNT, AUTOMATED 296 10^3/uL (150-450); RED BLOOD COUNT 4.94 10^6/uL (4.00-5.40); WHITE BLOOD COUNT 10.8 10^3/uL (4.0-10.0)
[2020-07-02 20:24] LABS: ALT/SGPT 33 U/L (12-78); BILIRUBIN,DIRECT < 0.1 MG/DL (0.0-0.2); BILIRUBIN,TOTAL 0.2 MG/DL (0.2-1.0); LIPASE 98 U/L (73-393); TOTAL PROTEIN 7.4 GM/DL (6.4-8.2)
[2020-07-02] MEDS ORDERED: PHENAZOPYRIDINE 100 MG TAB PO ONE (21:45)
[2020-07-02] MEDS ORDERED: NITROFURANTOIN (MACROBID) 100 MG CAP PO ONE (21:45)
[2020-07-02] MEDS ORDERED: MACR100C43 PO (21:51)
[2020-07-02] MEDS ORDERED: PYRI1TAB5 PO (21:51)
[2020-07-02 21:59] VITALS: BP 138/85
[2020-07-02 22:40] LABS: CHLAMYDIA DNA AMPLIFICATION NEGATIVE (NEGATIVE); GC DNA AMPLIFICATION NEGATIVE (NEGATIVE)
== END 2020-07-02 22:15 | disposition home or self-care (01) ==
LOC: M ED 19:11
DX: R30.0 Dysuria (principal); R35.8 Other polyuria; F17.200 Nicotine dependence, unspecified, uncomplicated; Z79.2 Long term (current) use of antibiotics; Z79.899 Other long term (current) drug therapy; Z88.6 Allergy status to analgesic agent; Z88.1 Allergy status to other antibiotic agents

== ENCOUNTER 2020-08-28 22:38 | Emergency (ER) | payer OTHER ==
[~2020-08-28] VITALS: Ht 160 cm; Wt 93.4 kg
[~2020-08-28 22:38] MED LIST changes: +AMOX875T PO
[2020-08-28] MEDS ORDERED: ALBU8.5H (22:44)
--- NOTE | 2020-08-28 23:15 | REPVR ---
PROCEDURE INFORMATION: Exam: XR Right Foot Complete Exam date and time: 08/28/2020 10:48 PM Age: 29 years old Clinical indication: Pain; Foot; Right; Additional info: Stepped on a nail TECHNIQUE: Imaging protocol: XR Right foot. Views: 3 or more views. COMPARISON: No relevant prior studies available. FINDINGS: Bones/joints: No dislocation. Joint spaces are preserved. Moderate plantar calcaneal spur. Small cortical irregularity at the dorsal aspect of the base of the 1st metatarsal bone. No fracture otherwise. Biphalangeal 5th toe which is a normal variant. Soft tissues: No radiopaque foreign body. IMPRESSION: 1. Small cortical irregularity at the dorsal aspect of the base of the 1st metatarsal bone. Small fracture versus spurring. 2. No radiopaque foreign body. Electronically signed by: Serena Schumacher On 08/28/2020 23:15:59 PM
[2020-08-28] MEDS ORDERED: CIPR-249 PO (23:50)
[2020-08-29] MEDS ORDERED: CIPROFLOXACIN 500MG TABLET PO ONE
[2020-08-29 00:09] VITALS: BP 141/84
== END 2020-08-29 00:14 | disposition home or self-care (01) ==
LOC: M ED 22:38
DX: S91.331A Puncture wound without foreign body, right foot, initial encounter (principal); W45.0XXA Nail entering through skin, initial encounter; Y92.018 Other place in single-family (private) house as the place of occurrence of the external cause; Z88.1 Allergy status to other antibiotic agents; Z88.8 Allergy status to other drugs, medicaments and biological substances; F17.210 Nicotine dependence, cigarettes, uncomplicated

== ENCOUNTER 2020-10-14 20:50 | Emergency (ER) | payer OTHER ==
[~2020-10-14] VITALS: Ht 160 cm; Wt 95.0 kg
[~2020-10-14 20:50] MED LIST changes: +ALBU8.5H; +CIPR-249 PO
--- OUTSIDE RECORDS SUMMARY | 2020-10-14 20:55 | CCD ---
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 Name Role Phone TANVI BREAUX Unavailable Allergies, Adverse Reactions, Alerts Aleve 02/01/2016 Keflex 03/17/2020 naproxen 03/17/2020 Medications * Continue: * TANVI HEADLEY * predniSONE 20 mg tablet , Take 2 tablet orally Every day 08/20/2020 * Discontinued: * * ZyrTEC 10 mg tablet 10/16/2019 * fluticasone propionate 0.05 % topical cream 11/10/2019 * No Active Medications 10/17/2017 * Augmentin 875 mg-125 mg tablet 08/19/2018 * Flonase Allergy Relief 50 mcg/actuation nasal spray,suspension 08/19/2018 * Augmentin 875 mg-125 mg tablet 10/16/2019 * dextromethorphan-guaifenesin ER 60 mg-1,200 mg tab,extend release,12hr 11/10/2019 * Sudafed 30 mg tablet 11/10/2019 * TylenoL 325 mg tablet 11/10/2019 * JOSSY CRUZ * FLUoxetine 40 mg capsule 10/16/2019 * MONSERRAT PEMBERTON * cyclobenzaprine 10 mg tablet 10/17/2017 * TANVI HEADLEY * No Active Medications 08/19/2018 * No Active Medications 11/10/2019 * predniSONE 20 mg tablet 02/07/2020 * Voltaren 1 % topical gel 06/28/2020 * No Active Medications 08/20/2020 * LILIANA SHERIDAN LPN * Zofran 4 mg tablet 09/01/2019 * predniSONE 10 mg tablet 03/17/2020 * cephALEXin 500 mg tablet 03/17/2020 * MIKAEL BIGGS LPN * methocarbamoL 500 mg tablet 06/14/2020 * TylenoL 325 mg tablet 06/14/2020 * amoxicillin 875 mg tablet 08/20/2020 Problems Urticaria, unspecified (L50.9) 0 Resolved: Cervicalgia (M54.2) 08/19/2018 Acute nasopharyngitis [common cold] (J00) 08/19/2018 Cough (R05) 08/19/2018 Acute bronchitis, unspecified (J20.9) 08/19/2018 Urinary tract infection, site not specified (N39.0) 09/01/2019 Diarrhea, unspecified (R19.7) 09/01/2019 Nausea with vomiting, unspecified (R11.2) 09/01/2019 Myalgia, unspecified site (M79.10) 09/01/2019 Fever, unspecified (R50.9) 09/01/2019 Chest pain, unspecified (R07.9) 09/01/2019 Anxiety disorder, unspecified (F41.9) 09/01/2019 Cellulitis of right upper limb (L03.113) 10/16/2019 Acute upper respiratory infection, unspecified (J06.9) 11/10/2019 Nasal congestion (R09.81) 11/10/2019 Cough (R05) 11/10/2019 Pleurisy (R09.1) 02/07/2020 Cellulitis of left lower limb (L03.116) 03/17/2020 Rash and other nonspecific skin eruption (R21) 03/17/2020 Dorsalgia, unspecified (M54.9) 04/30/2020 Myalgia, unspecified site (M79.10) 04/30/2020 Diarrhea, unspecified (R19.7) 06/14/2020 Acute pharyngitis, unspecified (J02.9) 06/14/2020 Cough (R05) 06/14/2020 Fever, unspecified (R50.9) 06/14/2020 Pain in right lower leg (M79.661) 06/28/2020 Jaw pain (R68.84) 08/20/2020 Results Leukocytes: Trace 08/19/2018 Nitrite: Negative 08/19/2018 Urobilinogen: 4 mg/dL 08/19/2018 Protein: +1 08/19/2018 pH: 6.5 08/19/2018 Blood (Urine): Negative 08/19/2018 Specific [place]: 1.020 08/19/2018 Ketone: Small 08/19/2018 Bilirubin: Large 08/19/2018 Glucose: Negative 08/19/2018 Chief Complaint/Reason for Visit UrticariaStart prednisone allergic reaction Jaw painGingival infectionStart amoxicil yesica TOOTH ABCESS Pain in the right legActually she has pa in in both legs from time to time most consistent with peralta splintsThe lump that she feels is probably a small lipomaThere is no clinical evidence of DVTWe will start topical Voltaren right leg pain CoughLow-grade feverPharyngitisHer son h as rhinovirusShe was screened prior to entering the facility for Covid 19The rapid test is negativeConfirmatory testing sent to the labExam is quite reassuringThe throat is a bit red however and therefore rapid strep was performedThis was negativeCulture was sent to the labPatient will start taking Zyrtec daily to help reduce postnasal drip and congestionVitamin CLots of fluids Head and chest cold 29-year-old female, new onset exercise, has been kayaking for the past 2 weeks, stopped 2 days ago when her back started hurting. Muscular in nature. EKG unremarkable. Tylenol for pain relief, methocarbamol to help with muscular spasm.Patient advised to use ice 20 minutes on and 20 minutes off 3-5 times a day for the next 3-5 days. Follow-up as needed back pain x 2days Poison marylu with secondary infectionStart prednisone and Keflex Chest wall painSuggestive of pleurisyPER C score negativeWell's criteria lowNo shortness of breathStart prednisone lung pain Upper Respiratory Infection, Likely nona l; no bacterial source appreciated; nontoxic appearance at this time; afebrile and vital signs unremarkable; will treat as follows: Rest, fluids, time, and reassurance. Education and counseling today in clinic on conservative measures. Medications as above F/u if symptoms worsen including high grade fevers of 102.5 F, shortness of breath, increased work of breathing, or lethargic appearance. Pt education on proper hygiene to prevent spreading of disease, including coughing into sleeve, hand washing, and not coughing without containment. Patient understands and concurs with treatment plan. cough Cellulitis of the handAfter being scratc hed by a catNo evidence of foreign bodyNo bony tendernessStart Augmentin right hand,sore from cat scratch negative cxrEKG: SB with rates in 50s. P wave priro to each QRS complex. No ST elevation or depressionSymptoms related to recent cold an dincreased cough, also related to anxietyHome care discussedPt does not plan to use anti- inflammatories despite education givenF/U PCP in 5-7 days if no improvement CHEST PAIN FeverVomitingDiarrheaSeveral household c ontacts with similar symptoms resolved quicklyRapid flu negativeUrinalysis nondiagnostic, culture sentPatient took Tylenol prior to arrival in the temperature is going downAbdomen is benignKing fluids wellDeclined go the hospitalWe will treat feverDrink lots of fluidsOrdered Zofran for nauseaIf diarrhea worsens we will get a stool sampleReturn here or go to the hospital for worsening symptoms flu cold sxs, garay, rash on face Procedures Performed and Ordered Today * MED SERV, [facility] 02/01/2016 * MED SERV, [facility] 10/17/2017 * URINALYSIS NONAUTO W/O SCOPE 08/19/2018 * MED SERV, [facility] 08/19/2018 * INFLUENZA ASSAY W/OPTIC 08/19/2018 * ECG COMPLETE 07/23/2019 * MED SERV, [facility] 03/17/2020 * ECG COMPLETE 03/17/2020 * INFECTIOUS AGENT ANTIGEN DETECTION 04/30/2020 * RAPID STREP 04/30/2020 * MED SERV, [facility] 06/14/2020 * MED SERV, [facility] 06/28/2020 * * Lab: Collected Date 08/19/18 19:20 08/19/2018 URINE CULTURE 08/19/2018 Collected Date 04/30/2020 1536 04/30/2020 THROAT PO CULTURE 04/30/2020 Imaging: Physical Therapy 02/01/2016 CHEST XRAY 2 VIEW 07/23/2019 Vital signs Body Temperature: Heart Rate: Respiratory Rate: BP: Height: Weight: BMI: O2 Percentage BldC Oximetry : Pain: Inhaled Oxygen Concentration : 97.2F 08/20/2020 72 beats per minute 08/20/2020 17 breaths per minute 08/20/2020 110 /72 mmHg 08/20/2020 5ft, 3in 08/20/2020 210lbs 0 37.196 08/20/2020 98% 08/20/2020 4/10 03/17/2020 21% 08/20/2020 Immunizations Social History Smoking Status: Smoker, current status unknown. 08/20/2020 Reason for Referral Functional Status Plan of Treatment Appointments [facility] ed: January 31 6, 7:30 PM, TANVI HEADLEY Sunday, October 17, 2017, 6:30 PM, GERSON HEADLEY Sunday, August 19, 2018, 7:00 PM, TANVI HEADLEY Sunday, July 23, 2019, 6:20 PM, SEYMOUR COLLAZO NP Sunday, September 01, 2019, 1:30 PM, TANVI HEADLEY , October 16, 2019, 4:40 PM, JOSSY HEADLEY Sunday, November 10, 2019, 4:50 PM, TANVI HEADLEY Sunday, February 07, 2020, 2:20 PM, TANVI HEADLEY Sunday, March 17, 2020, 6:20 PM, JOSSY HEADLEY Thursday, April 30, 2020, 11:00 AM, TANVI HEADLEY Sunday, June 14, 2020, 6:50 PM, TANVI HEADLEY Sunday, June 28, 2020, 7:00 PM, TANVI HEADLEY Sunday, August 20, 2020, 9:00 AM, TANVI HEADLEY Instructions: <Follow up with primary care> Return if symptoms worsen <Follow up with primary care> Consider using a barrier method for control while on antibiotics as antibiotics may inhibit the effectiveness of oral contraceptives. Return if symptoms worsen When taking antibiotics, also take probiotics. <Follow up with primary care> Return if symptoms worsen <Follow up with primary care> Treat fever with ibuprofen and/or acetaminophen per label instructions as needed unless allergic or otherwise intolerant. Return if symptoms worsen We will call with lab and/or xray results <Follow up with primary care> Return if symptoms worsen Verbal discharge instructions provided at the time of the visit <Follow up with primary care> If your symptoms worsen, go to the Emergency Room. <Follow up with primary care> Return if symptoms worsen <Follow up with primary care> Consider using a barrier method for control while on antibiotics as antibiotics may inhibit the effectiveness of oral contraceptives. Return if symptoms worsen When taking antibiotics, also take probiotics. Use warm compresses on the area <Follow up with primary care> Return if symptoms worsen <Follow up with primary care> Treat fever with ibuprofen and/or acetaminophen per label instructions as needed unless allergic or otherwise intolerant. We will call with lab and/or xray results If your symptoms worsen, go to the Emergency Room. If your symptoms worsen, go to the Emergency Room. When taking antibiotics, also take probiotics. Try the cyclobenzaprine and do not take at the same time as hydrocodone (separate by at least 2 hoursCall the surgeon tomorrow Payers Insurance Policy Type Po licy ID Relation Subscriber Expi ration ID IDENTIFICATION Other Insurance Self [facility] C ommercial Insurance [id number] Self [facility] C ommercial Insurance [id number] Self [address] [address] [address] 06/24/2019 Encounters OFFICE/OUTPATIENT SIT, EST 08/20/2020 Diagnoses Urticaria, unspecified OFFICE/OUTPATIENT SIT, EST 06/28/2020 Diagnoses Jaw pain OFFICE/OUTPATIENT SIT, EST 06/14/2020 Diagnoses Pain in right lower leg OFFICE/OUTPATIENT SIT, EST 04/30/2020 Diagnoses Diarrhea, unspecified Acute pharyngitis, unspecified Cough Fever, unspecified OFFICE/OUTPATIENT SIT, EST 03/17/2020 Diagnoses Dorsalgia, unspecified Myalgia, unspecified site OFFICE/OUTPATIENT SIT, EST 02/07/2020 Diagnoses Cellulitis of left lower limb Rash and other nonspecific skin eruption OFFICE/OUTPATIENT SIT, EST 11/10/2019 OFFICE/OUTPATIENT SIT, EST 10/16/2019 OFFICE/OUTPATIENT SIT, EST 09/01/2019 OFFICE/OUTPATIENT SIT, EST 07/23/2019 OFFICE/OUTPATIENT SIT, EST 08/19/2018 OFFICE/OUTPATIENT SIT, EST 10/17/2017 OFFICE/OUTPATIENT SIT, NEW 02/01/2016
--- OUTSIDE RECORDS SUMMARY | 2020-10-14 20:55 | CCD ---
Author Author [facility] Organization [facility] Address Unknown Phone Unavailable Care Team Providers Care Dentist Private Practice Name Role Phone BREAUX, W TANVI PA Unavailable Unavailable BREAUX, W TANVI PA Unavailable Unavailable BREAUX, W TANVI PA Unavailable Unavailable BREAUX, W TANVI PA Unavailable Unavailable BREAUX, W TANVI PA Unavailable Unavailable BREAUX, W TANVI PA Unavailable Unavailable BREAUX, W TANVI PA Unavailable Unavailable BREAUX, W TANVI PA Unavailable Unavailable BREAUX, W TANVI PA Unavailable Unavailable BREAUX, W TANVI PA Unavailable Unavailable BREAUX, W TANVI PA Unavailable Unavailable BREAUX, W TANVI PA Unavailable Unavailable BREAUX, W TANVI PA Unavailable Unavailable BREAUX, W TANVI PA Unavailable Unavailable BREAUX, W TANVI PA Unavailable Unavailable BREAUX, W TANVI PA Unavailable Unavailable BREAUX, W TANVI PA Unavailable Unavailable BREAUX, W TANVI PA Unavailable Unavailable BREAUX, W TANVI PA Unavailable Unavailable BREAUX, W TANVI PA Unavailable Unavailable BREAUX, W TANVI PA Unavailable Unavailable BREAUX, W TANVI PA Unavailable Unavailable BREAUX, W TANVI PA Unavailable Unavailable BREAUX, W TANVI PA Unavailable Unavailable BREAUX, W TANVI PA Unavailable Unavailable BREAUX, W TANVI PA Unavailable Unavailable BREAUX, W TANVI PA Unavailable Unavailable BREAUX, W TANVI PA Unavailable Unavailable BREAUX, W TANVI PA Unavailable Unavailable BREAUX, W TANVI PA Unavailable Unavailable BREAUX, W TANVI PA Unavailable Unavailable BREAUX, W TANVI PA Unavailable Unavailable BREAUX, W TANVI PA Unavailable Unavailable BREAUX, W TANVI PA Unavailable Unavailable BREUAX, W TANVI PA Unavailable Unavailable BREAUX, W TANVI PA Unavailable Unavailable BREAUX, W TANVI PA Unavailable Unavailable BREAUX, W TANVI PA Unavailable Unavailable BREAUX, W TANVI PA Unavailable Unavailable BREAUX, W TANVI PA Unavailable Unavailable BREAUX, W TANVI PA Unavailable Unavailable BREAUX, W TANVI PA Unavailable Unavailable BREAUX, W TANVI PA Unavailable Unavailable BREAUX, W TANVI PA Unavailable Unavailable BREAUX, W TANVI PA Unavailable Unavailable BREAUX, W TANVI PA Unavailable Unavailable Wolfgang Oden MD Unavailable Unavailable Wolfgang Oden MD Unavailable Unavailable Wolfgang Oden MD Unavailable Unavailable Wolfgang Oden MD Unavailable Unavailable Wolfgang Oden MD Unavailable Unavailable Wolfgang Oden MD Unavailable Unavailable Wolfgang Oden MD Unavailable Unavailable Wolfgang Oden MD Unavailable Unavailable Wolfgang Oden MD Unavailable Unavailable Wolfgang Oden MD Unavailable Unavailable Wolfgang Oden MD Unavailable Unavailable Wolfgang Oden MD Unavailable Unavailable Wolfgang Oden MD Unavailable Unavailable Wolfgang Oden MD Unavailable Unavailable Wolfgang Oden MD Unavailable Unavailable Wolfgang Oden MD Unavailable Unavailable Wolfgang Oden MD Unavailable Unavailable Wolfgang Oden MD Unavailable Unavailable Wolfgang Oden MD Unavailable Unavailable Wolfgang Oden MD Unavailable Unavailable Wolfgang Oden MD Unavailable Unavailable Wolfgang Oden MD Unavailable Unavailable Wolfgang Oden MD Unavailable Unavailable Wolfgang Oden MD Unavailable Unavailable Wolfgang Oden MD Unavailable Unavailable Wolfgang Oden MD Unavailable Unavailable Wolfgang Oden MD Unavailable Unavailable Wolfgang Oden MD Unavailable Unavailable Wolfgang Oden MD Unavailable Unavailable Wolfgang Oden MD Unavailable Unavailable Wolfgang Oden MD Unavailable Unavailable Wolfgang Oden MD Unavailable Unavailable Wolfgang Oden MD Unavailable Unavailable Wolfgang Oden MD Unavailable Unavailable Wolfgang Oden MD Unavailable Unavailable Wolfgang Oden MD Unavailable Unavailable Wolfgang Oden MD Unavailable Unavailable Wolfgang Oden MD Unavailable Unavailable Wolfgang Oden MD Unavailable Unavailable Wolfgang Oden MD Unavailable Unavailable Wolfgang Oden MD Unavailable Unavailable Wolfgang Oden MD Unavailable Unavailable Wolfgang Oden MD Unavailable Unavailable Wolfgang Oden MD Unavailable Unavailable OdenWolfgang MD Unavailable Unavailable OdenWolfgang MD Unavailable Unavailable Oden, Wolfgang Block MD Unavailable Unavailable Oden, Wolfgang Block MD Unavailable Unavailable Oden, Wolfgang Block MD Unavailable Unavailable OdenWolfgang MD Unavailable Unavailable Oden, Wolfgang Block MD Unavailable Unavailable OdenWolfgang MD Unavailable Unavailable Wolfgang Oden MD Unavailable Unavailable Oden, Wolfgang Block MD Unavailable Unavailable Oden, Wolfgang Block MD Unavailable Unavailable Oden, Wolfgang Block MD Unavailable Unavailable Oden, Wolfgang Blokc MD Unavailable Unavailable Oden, Wolfgang Block MD Unavailable Unavailable OdenWolfgang MD Unavailable Unavailable Oden, Wolfgang Block MD Unavailable Unavailable Wolfgang Oden MD Unavailable Unavailable Wolfgang Oden MD Unavailable Unavailable Oden, Wolfgang Block MD Unavailable Unavailable Oden, Wolfgang Block MD Unavailable Unavailable OdenWolfgang MD Unavailable Unavailable Oden, Wolfgang Block MD Unavailable Unavailable Oden, Wolfgang Block MD Unavailable Unavailable Oden, Wolfgang Block MD Unavailable Unavailable Wolfgang Oden MD Unavailable Unavailable Wolfgang Oden MD Unavailable Unavailable Wolfgang Oden MD Unavailable Unavailable Oden, Wolfgang Block MD Unavailable Unavailable Wolfgang Oden MD Unavailable Unavailable Oden, Wolfgang Block MD Unavailable Unavailable Oden, Wolfgang Block MD Unavailable Unavailable Wolfgang Oden MD Unavailable Unavailable OdenWolfgang MD Unavailable Unavailable Wolfgang Oden MD Unavailable Unavailable Wolfgang Oden MD Unavailable Unavailable Wolfgang Oden MD Unavailable Unavailable OdenWolfgang MD Unavailable Unavailable OdenWolfgang MD Unavailable Unavailable Wolfgang Oden MD Unavailable Unavailable Wolfgang Oden MD Unavailable Unavailable Wolfgang Oden MD Unavailable Unavailable Wolfgang Oden MD Unavailable Unavailable Wolfgang Oden MD Unavailable Unavailable Wolfgang Oden MD Unavailable Unavailable OdenWolfgang MD Unavailable Unavailable Stone, Wesley PA Unavailable Unavailable Stone, Wesley PA Unavailable Unavailable Stone, Wesley PA Unavailable Unavailable Stone, Wesley PA Unavailable Unavailable Stone, Wesley PA Unavailable Unavailable Stone, Wesley PA Unavailable Unavailable Stone, Wesley PA Unavailable Unavailable Stone, Wesley PA Unavailable Unavailable Stone, Wesley PA Unavailable Unavailable Stone, Wesley PA Unavailable Unavailable Stone, Wesley PA Unavailable Unavailable Stone, Wesley PA Unavailable Unavailable Stone, Wesley PA Unavailable Unavailable Stone, Wesley PA Unavailable Unavailable Stone, Wesley PA Unavailable Unavailable Sotne, Wesley PA Unavailable Unavailable Stone, Wesley PA Unavailable Unavailable Stone, Wesley PA Unavailable Unavailable Stone, Wesley PA Unavailable Unavailable Stone, Wesley PA Unavailable Unavailable Re-disclosure Warning The records that you are about to access may contain information from federally-assisted alcohol or drug abuse programs. If such information is present, then the following federally mandated warning applies: This information has been disclosed to you from records protected by federal confidentiality rules (42 CFR part 2). The federal rules prohibit you from making any further disclosure of this information unless further disclosure is expressly permitted by the written consent of the person to whom it pertains or as otherwise permitted by 42 CFR part 2. A general authorization for the release of medical or other information is NOT sufficient for this purpose. The Federal rules restrict any use of the information to criminally investigate or prosecute any alcohol or drug abuse patient.The records that you are about to access may contain highly sensitive health information, the redisclosure of which is protected by Article 27-F of the [facility] Public Health law. If you continue you may have access to information: Regarding HIV / AIDS; Provided by facilities licensed or operated by the [facility] Office of Mental Health; or Provided by the [facility] Office for People With Developmental Disabilities. If such information is present, then the following [facility] mandated warning applies: This information has been disclosed to you from confidential records which are protected by state law. State law prohibits you from making any further disclosure of this information without the specific written consent of the person to whom it pertains, or as otherwise permitted by law. Any unauthorized further disclosure in violation of state law may result in a fine or mcc sentence or both. A general authorization for the release of medical or other information is NOT sufficient authorization for further disc losure. Allergies and Adverse Reactions Type Description Substance Reaction Status Data Source(s ) [id number] Naproxen [facility] ([facility]) [id number] Keflex [facility] ([facility]) Family History Family Member Name Family Member Gender Family Member Status Date o f Status Description Data Source(s) Unknown Unknown Problem MEDENT ([facility]) Encounters Encounter Providers Location Date Indications Data Source(s ) OutpatientOFFICE/OUTPATIENT VISIT, EST 08/20/2020 Attender: TANVI HEADLEY 08/20/2020 09:03:40 AM EST [facility] ([facility]) OutpatientOFFICE/OUTPATIENT VISIT, EST 06/28/2020 Attender: GENEVIEVE HEADLEY 06/28/2020 06:52:17 PM EDT [facility] ([facility]) OutpatientOFFICE/OUTPATIENT VISIT, EST 06/14/2020 Attender: GENEVIEVE HEADLEY 06/14/2020 06:49:30 PM EDT [facility] ([facility]) OutpatientOFFICE/OUTPATIENT VISIT, EST 04/30/2020 Attender: TANVI HEADLEY 04/30/2020 02:01:51 PM EDT [facility] ([facility]) OutpatientOFFICE/OUTPATIENT VISIT, EST 03/17/2020 Attender: Michael HEADLEY 03/17/2020 06:18:00 PM EDT [facility] ([facility]) Outpatient Attender: Umair Oden MD FP 03/16/2020 11:28:00 AM EDT [facility] Outpatient Attender: Umair Oden MD FP 03/12/2020 11:01:01 AM EDT [facility] Outpatient Attender: Umair Oden MD FP 03/08/2020 03:16:01 PM EDT [facility] Outpatient Attender: Umair Oden MD FP 03/02/2020 07:47:26 PM EDT [facility] Outpatient Attender: Umair Oden MD FP 02/21/2020 12:14:39 AM EDT [facility] OutpatientOFFICE/OUTPATIENT VISIT, EST 02/07/2020 Attender: GENEVIEVE HEADLEY 02/07/2020 02:21:06 PM EDT [facility] ([facility]) Outpatient Attender: Umair Oden MD FP 11/25/2019 12:45:00 PM EST [facility] OutpatientOFFICE/OUTPATIENT VISIT, EST 11/10/2019 Attender: GENEVIEVE HEADLEY 11/10/2019 05:10:19 PM EST [facility] ([facility]) OutpatientOFFICE/OUTPATIENT VISIT, EST 10/16/2019 Attender: Michael HEADLEY 10/16/2019 04:37:10 PM EST [facility] ([facility]) Outpatient Attender: Umair Oden MD FP 10/10/2019 12:47:01 PM EST [facility] OutpatientOFFICE/OUTPATIENT VISIT, EST 09/01/2019 Attender: GENEVIEVE HEADLEY 09/01/2019 01:38:35 PM EST [facility] ([facility]) Medications Medication Brand Name Start Date Product Form Dose Route Admi nistrative Instructions Pharmacy Instructions Status Indications Reaction Description Data Source(s) Prednisone 20 MG Oral Tablet predniSONE 20 mg tablet predniS ONE 20 mg tablet 08/20/2020 12:00:00 AM EST 2 completed , Take 2 tablet orally Every day 08/20/2020 [facility] ([facility]) Amoxicillin 875 MG Oral Tablet amoxicillin 875 mg tabl et amoxicillin 875 mg tablet 06/28/2020 12:00:00 AM EDT 1 completed 08/20/2020 [facility] ([facility]) Diclofenac Sodium 0.01 MG/MG Topical Gel [Voltaren] Vo ltaren 1 % topical gel Voltaren 1 % topical gel 06/14/2020 12:00:00 AM EDT [facility] Methocarbamol 500 MG Oral Tablet methocarbamoL 500 mg tablet methocarbamoL 500 mg tablet 03/17/2020 12:00:00 AM EDT 2 completed 06[facility]14/2020 [facility] Acetaminophen 325 MG Oral Tablet [Tylenol] TylenoL 325 mg tablet TylenoL 325 mg tablet 03/17/2020 12:00:00 AM EDT completed 06/14/2020 [facility] Prednisone 10 MG Oral Tablet predniSONE 10 mg tablet predniS ONE 10 mg tablet 02/07/2020 12:00:00 AM EDT 1 completed 03/17/2020 [facility] ([facility]) Cephalexin 500 MG Oral Tablet cephALEXin 500 mg tablet cephA LEXin 500 mg tablet 02/07/2020 12:00:00 AM EDT 1 completed 03/17/2020 [facility] Prednisone 20 MG Oral Tablet predniSONE 20 mg tablet predniS ONE 20 mg tablet 11/10/2019 12:00:00 AM EST 2 completed 02/07/2020 [facility] Acetaminophen 325 MG Oral Tablet [Tylenol] TylenoL 325 mg tablet TylenoL 325 mg tablet 10/16/2019 12:00:00 AM EST completed 11/10/2019 [facility] ([facility]) 12 HR Dextromethorphan Hydrobromide 60 M G / Guaifenesin 1200 MG Extended Release Oral Tablet dextromethorphan-guaifenesin ER 60 mg-1,200 mg tab,extend release,12hr dextromethorphan-guaifenesin ER 60 mg-1, 200 mg tab,extend release,12hr 10/16/2019 12:00:00 AM EST 1 completed 11/10/2019 [facility] ([facility]) Pseudoephedrine Hydrochloride 30 MG Oral Tablet [Sudaf ed] Sudafed 30 mg tablet Sudafed 30 mg tablet 10/16/2019 12:00:00 AM EST completed 11/10/2019 [facility] ([facility]) Amoxicillin 875 MG / Clavulanate 125 MG Oral Tablet [Augmentin] Augmentin 875 mg-125 mg tablet Augmentin 875 mg-125 mg tablet 09/01/2019 12:00:00 AM EST 1 completed 10/16/2019 [facility] ([facility]) Ondansetron 4 MG Oral Tablet [Zofran] Zofran 4 mg tablet Zof ran 4 mg tablet 08/19/2018 12:00:00 AM EST 1 completed 09/01/2019 [facility] ([facility]) Insurance Providers Payer name Policy type / Coverage type Policy ID Covered alliance party ID Covered alliance party's relationship to baron Policy Baron Plan Information [facility] [id number] SP [id number] [facility] O [id number] S [id number] [facility] [id number] Comme rcial Insurance [id number] [facility] [id number] Comme rcial Insurance [id number] ID IDENTIFICATION [id number] Other In surance [id number] Managed Care [facility] Community Plan P [id number] S [id number] Medicaid S [id number] S [id number] [facility] [id number] Comme rcial Insurance [id number] [facility] [id number] Comme rcial Insurance [id number] [facility] Health Maintenance Organization (HMO) [id number] Self [id number] Managed Care - [facility] P [id number] S [id number] [facility] [id number] Comme rcial Insurance [id number] MEDICAID [id number] SP [id number] [facility] [id number] SP [id number] UN COMMUNITY PLAN [facility] [id number] SP [id number] [facility] Comme rcial Insurance [place] [facility] -[facility] [id number] 18 [id number] MEDICAID [id number] SP [id number] SELF PAY UNAVAILABLE UNAVAILA BLE UN COMMUNITY PLAN [facility] [id number] SP [id number] BLUE [place] PLAN [id number] SP [id number] HMO BLUE [id number] SP [id number] HMO BLUE [id number] SP [id number] [employer] P [id number] S [id number] Problems, Conditions, and Diagnoses Code Display Name Description Problem Type Effective Dates Data Source(s) L50.9 Urticaria, unspecified Urticaria, unspecified (L50.9) 08/20/2020 [id number] 08/20/2020 09:03:40 AM EST [facility] ([facility]) R68.84 Jaw pain Jaw pain (R68.84) 08/20/2020 [id number] 06/28/2020 06:52:17 PM EDT - 08/20/2020 12:00:00 AM EST [facility] ([facility]) M79.661 Pain in right lower leg Pain in right lower leg (M79.661) 06/28/2020 [id number] 06/14/2020 06:49:30 PM EDT - 06/28/2020 12:00:00 AM ED T [facility] ([facility]) R50.9 Fever, unspecified Fever, unspecified (R50.9) 0 [id number] 04/30/2020 02:01:51 PM EDT - 06/14/2020 12:00:00 AM EDT [facility] ([facility]) R05 Cough Cough (R05) 06/14/2020 [id number] 2019 02:01:51 PM EDT - 06/14/2020 12:00:00 AM EDT [facility] ([facility]) J02.9 Acute pharyngitis, unspecified Acute pha ryngitis, unspecified (J02.9) 06/14/2020 [id number] 04/30/2020 02:01:51 PM EDT - 06/14/2020 12:00:00 AM EDT [facility] ([facility]) R19.7 Diarrhea, unspecified Diarrhea, unspecified (R19.7) [id number] 04/30/2020 02:01:51 PM EDT - 06/14/2020 12:00:00 AM EDT [facility] ([facility]) M79.10 Myalgia, unspecified site Myalgia, unspecified s ite (M79.10) 04/30/2020 [id number] 03/17/2020 06:18:00 PM EDT - 04/30/2020 12:00:00 AM ED T [facility] ([facility]) M54.9 Dorsalgia, unspecified Dorsalgia, unspecified (M54.9) 04/30/2020 [id number] 03/17/2020 06:18:00 PM EDT - 04/30/2020 12:00:00 AM EDT [facility] ([facility]) R21 Rash and other nonspecific skin eruption Rash and other nonspecific skin eruption (R21) 03/17/2020 [id number] 02/07/2020 02:21:06 PM EDT - 03/17/2020 12:00:00 AM EDT [facility] ([facility]) L03.116 Cellulitis of left lower limb Cellulitis of left lower limb (L03.116) 03/17/2020 [id number] 02/07/2020 02:21:06 PM EDT - 03/17/2020 12:00:00 AM EDT [facility] ([facility]) R09.1 Pleurisy Pleurisy (R09.1) 02/07/2020 [id number] 11/10/2019 05:10:19 PM EST - 02/07/2020 12:00:00 AM EDT [facility] ([facility]) R05 Cough Cough (R05) 11/10/2019 [id number] 2019 04:37:10 PM EST - 11/10/2019 12:00:00 AM EST [facility] ([facility]) R09.81 Nasal congestion Nasal congestion (R09.81) 11/10/2019 [id number] 10/16/2019 04:37:10 PM EST - 11/10/2019 12:00:00 AM EST [facility] ([facility]) J06.9 Acute upper respiratory infection, unspe cified Acute upper respiratory infection, unspecified (J06.9) 11/10/2019 [id number] 10/16/2019 04 :37:10 PM EST - 11/10/2019 12:00:00 AM EST [facility] ([facility]) L03.113 Cellulitis of right upper limb Celluliti s of right upper limb (L03.113) 10/16/2019 [id number] 09/01/2019 01:38:35 PM EST - 10/16/2019 12:00:00 AM EST [facility] ([facility]) F41.9 Anxiety disorder, unspecified Anxiety di sorder, unspecified (F41.9) 09/01/2019 [id number] 07/23/2019 06:33:02 PM EDT - 09/01/2019 12:00:00 AM EST [facility] ([facility]) R07.9 Chest pain, unspecified Chest pain, unspecified (R07.9) 09/01/2019 [id number] 07/23/2019 06:33:02 PM EDT - 09/01/2019 12:00:00 AM ES T [facility] ([facility]) R50.9 Fever, unspecified Fever, unspecified (R50.9) [id number] 08/19/2018 06:59:13 PM EST - 09/01/2019 12:00:00 AM EST [facility] ([facility]) M79.10 Diffuse muscle tenderness Myalgia, unspecified s ite (M79.10) 09/01/2019 [id number] 08/19/2018 06:59:13 PM EST - 09/01/2019 12:00:00 AM ES T [facility] ([facility]) R11.2 Nausea with vomiting, unspecified Nausea with vomiting, unspecified (R11.2) 09/01/2019 [id number] 08/19/2018 06:59:13 PM EST - 09/01/2019 12:00:00 AM EST [facility] ([facility]) R19.7 Diarrhea, unspecified Diarrhea, unspecified (R19.7) [id number] 08/19/2018 06:59:13 PM EST - 09/01/2019 12:00:00 AM EST [facility] ([facility]) N39.0 Urinary tract infection, site not specif ied Urinary tract infection, site not specified (N39.0) 09/01/2019 [id number] 08/19/2018 06:59:13 PM EST - 09/01/2019 12:00:00 AM EST [facility] ([facility]) Surgeries/Procedures Procedure Description Date Indications Data Source(s) [facility] OFFICE REG SCHEDD EVN WK/HOLIDAY HRS 2019 12:00:00 AM EDT [facility] ([facility]) [facility] OFFICE REG SCHEDD EVN /HOL HRS 2019 12:00:00 AM EDT [facility] ([facility]) IAADIADOO STREPTOCOCCUS GROUP A 04/30/2020 12:00:00 AM EDT [facility] ([facility]) INFECTIOUS AGENT ANTIGEN DETECTION 04/30/2020 0 12:00:00 AM EDT [facility] ([facility]) ECG ROUTINE ECG W/LEAST 12 LDS W/I&R 03/17/2020 12:00: 00 AM EDT [facility] ([facility]) [facility] OFFICE REG SCHEDD EVN / HRS 2019 12:00:00 AM EDT [facility] ([facility]) Results ID Date Data Source [id number] 04/30/2020 05:37:00 PM EDT [facility] Name Value Range Interpretation Code Description Data Lay rce(s) Supporting Document(s) SARS-CoV-2 (COVID-19) [facility] This lab was ordered by [facility] and reported by [employer]. ID Date Data Source [id number] 05/03/2020 09:31:24 AM EDT [facility] - CORE SPECIMEN DESCRIPTION THROAT [facility] ULTURE RESULTS NORMAL THROAT GEOVANNY NEGATIVE FOR BETA HEMOLYTIC STREPTOCOCCI GROUPS A,C OR G.REPORT STATUS FINAL 05/03/2020 Name Value Range Interpretation Code Description Data Lay rce(s) Supporting Document(s) ID Date Data Source [id number] 04/30/2020 12:00:00 AM EDT [facility] ([facility]) Name Value Range Interpretation Code Description Data Lay rce(s) Supporting Document(s) SARS-CoV2 Rapid Antigen [facility]M [facility] ([facility]) This lab was ordered by [facility] are and reported by [facility]. ID Date Data Source [id number] 12/26/2019 10:55:00 AM EDT [facility] Name Value Range Interpretation Code Description Data Lay rce(s) Supporting Document(s) SARS CORONAVIRUS 2 RNA [facility] This lab was ordered by [facility] and reported by [facility]. Procedure Social History Code Duration Value Status Description Data Source(s ) Smoking 08/20/2020 12:00:00 AM EST Smoker, current status unkn own completed Smoker, current status unknown [facility] ([facility]) Smoking 06/28/2020 12:00:00 AM EDT Smoker, current status unkn own completed Smoker, current status unknown [facility] ([facility]) Smoking 06/14/2020 12:00:00 AM EDT Current every day smoker co mpleted Current every day smoker [facility] ([facility]) Smoking 04/30/2020 12:00:00 AM EDT Current every day smoker co mpleted Current every day smoker [facility] ([facility]) Smoking 11/10/2019 12:00:00 AM EST Current every day smoker co mpleted Current every day smoker [facility] ([facility]) Smoking 09/01/2019 12:00:00 AM EST Smoker, current status unkn own completed Smoker, current status unknown [facility] ([facility]) Vital Signs ID Date Data Source UNK Name Value Range Interpretation Code Description Data Source(s) Inhaled oxygen concentration 21 % 21 % CH[facility]IL[facility] ([facility]) Oxygen saturation in Arterial blood by Pulse oximetry 98 % 98 % [facility] ([facility]) Body mass index (BMI) [Ratio] 37.9004376092959 kg/m2 37.2733621526055 kg/m2 [facility] ([facility]) Body weight 210 [lb_av] 210 [lb_av] [facility] ([facility]) Body height 63 [in_i] 63 [in_i] CH[facility]MA[facility]ER ([facility]) Diastolic blood pressure 72 mm[Hg] 72 mm[Hg] [facility] ([facility]) Systolic blood pressure 110 mm[Hg] 110 mm[Hg] C HARTMAKER ([facility]) Respiratory rate 17 /min 17 /min CHARTMAK ER ([facility]) Heart rate 72 /min 72 /min [facility] ([facility]) Body temperature 97.2 [degF] 97.2 [degF] CHARTJosh SIMSER ([facility]) Inhaled oxygen concentration 21 % 21 % [facility] ([facility]) Oxygen saturation in Arterial blood by Pulse oximetry 97 % 97 % [facility] ([facility]) Body mass index (BMI) [Ratio] 36.5562523689076 kg/m2 36.9000895332346 kg/m2 [facility] ([facility]) Body weight 207.1875 [lb_av] 207.1875 [lb_av] C [facility] ([facility]) Body height 63 [in_i] 63 [in_i] [facility] [facility]) Heart rate 82 /min 82 /min CHARTMAKER ([facility]) Body temperature 98.2 [degF] 98.2 [degF] CHARTJosh SIMSER ([facility]) Diastolic blood pressure 74 mm[Hg] 74 mm[Hg] CHARTMAKER ([facility]) Systolic blood pressure 138 mm[Hg] 138 mm[Hg] C HARTMAKER ([facility]) Respiratory rate 17 /min 17 /min CHARTMAK ER ([facility]) Inhaled oxygen concentration 21 % 21 % CHARTMAKER ([facility]) Oxygen saturation in Arterial blood by Pulse oximetry 98 % 98 % CHARTMAKER ([facility]) Body mass index (BMI) [Ratio] 37.7329238424648 kg/m2 37.0234648634780 kg/m2 CHARTMAKER ([facility]) Body weight 210 [lb_av] 210 [lb_av] CHARTMAKER ([facility]) Body height 63 [in_i] 63 [in_i] CHARTMAKER ([facility]) Heart rate 63 /min 63 /min CHARTMAKER ([facility]) Body temperature 97 [degF] 97 [degF] CHARTMAK ER ([facility]) Oxygen saturation in Arterial blood by Pulse oximetry 97 % 97 % CHARTMAKER ([facility]) Body mass index (BMI) [Ratio] 36.5594749338748 kg/m2 36.1734180207835 kg/m2 CHARTMAKER ([facility]) Body weight 205 [lb_av] 205 [lb_av] CHARTMAKER ([facility]) Body height 63 [in_i] 63 [in_i] CHARTMAKER ([facility]) Heart rate 64 /min 64 /min CHARTMAKER ([facility]) Body temperature 97.9 [degF] 97.9 [degF] CHART ARUN ([facility]) Inhaled oxygen concentration 21 % 21 % CHARTMAKER ([facility]) Pain severity - Reported CHARTMAKER ([facility]) Diastolic blood pressure 90 mm[Hg] 90 mm[Hg] CHARTMAKER ([facility]) Systolic blood pressure 160 mm[Hg] 160 mm[Hg] C HARTILKER ([facility]) Respiratory rate 16 /min 16 /min CHARTMAK ER ([facility]) Inhaled oxygen concentration 21 % 21 % CHARTMAKER ([facility]) Oxygen saturation in Arterial blood by Pulse oximetry 97 % 97 % CHARTMAKER ([facility]) Body weight 203 [lb_av] 203 [lb_av] CHARTMAKER ([facility]) Diastolic blood pressure 68 mm[Hg] 68 mm[Hg] CHARTMAKER ([facility]) Systolic blood pressure 132 mm[Hg] 132 mm[Hg] C HARTILKER ([facility]) Heart rate 85 /min 85 /min CHARTMAKER ([facility]) Body temperature 99 [degF] 99 [degF] CHARTMAK ER ([facility]) Body mass index (BMI) [Ratio] 37.4503468747149 kg/m2 37.6540582190541 kg/m2 CHARTMAKER ([facility]) Body height 62 [in_i] 62 [in_i] CHARTMAKER ([facility]) Respiratory rate 16 /min 16 /min CHARTILK ER ([facility]) Inhaled oxygen concentration 21 % 21 % CHARTMAKER ([facility] [place]) Oxygen saturation in Arterial blood by Pulse oximetry 97 % 97 % CHARTILKER ([facility]) Body weight 203 [lb_av] 203 [lb_av] CHARTILKER ([facility]) Diastolic blood pressure 80 mm[Hg] 80 mm[Hg] CHARTMAKER ([facility]) Systolic blood pressure 122 mm[Hg] 122 mm[Hg] [facility]) Heart rate 84 /min 84 /min CHARTMAKER ([facility] [place]) Body temperature 97.8 [degF] 97.8 [degF] PARK DIAS ([facility] [place])
--- OUTSIDE RECORDS SUMMARY | 2020-10-14 21:52 | CCD ---
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 If you continue you may have access to information: Regarding HIV / AIDS; Provided by facilities licensed or operated by the [facility] Office of Mental Health; or Provided by the [facility] Office for People With Developmental Disabilities. If such information is present, then the following [facility] mandated warning applies: This information has [...] Description Substance Reaction Status Data Source(s ) [id number] Naproxen CHARTMAKER ([facility]) [id number] Keflex CHARTMAKER ([facility]) Family [...] GENEVIEVE HEADLEY 06/28/2020 06:52:17 PM EDT CHARTMAKER ([facility]) OutpatientOFFICE/OUTPATIENT VISIT, EST 06/14/2020 Attender: GENEVIEVE HEADLEY 06/14/2020 06:49:30 PM EDT CHARTMAKER ([facility]) OutpatientOFFICE/OUTPATIENT VISIT, EST 04/30/2020 Attender: TANVI HEADLEY 04/30/2020 02:01:51 PM EDT CHARTMAKER ([facility]) OutpatientOFFICE/OUTPATIENT VISIT, EST 03/17/2020 Attender: Michael HEADLEY 03/17/2020 06:18:00 PM EDT CHARTMAKER ([facility]) Outpatient Attender: Umair Oden MD FP 03/16/2020 11:28:00 AM EDT [facility] Outpatient Attender: Umair Oden MD FP 03/12/2020 11:01:01 AM EDT [facility] Outpatient Attender: Umair Odne MD FP 03/08/2020 03:16:01 PM EDT [facility] Outpatient Attender: Umair Oden MD FP 03/02/2020 07:47:26 PM EDT [facility] Outpatient Attender: Umair Oden MD FP 02/21/2020 12:14:39 AM EDT [facility] OutpatientOFFICE/OUTPATIENT VISIT, EST 02/07/2020 Attender: GENEVIEVE HEADLEY 02/07/2020 02:21:06 PM EDT CHARTMAKER ([facility]) Outpatient Attender: Umair Oden MD FP 11/25/2019 12:45:00 PM EST [facility] OutpatientOFFICE/OUTPATIENT VISIT, EST 11/10/2019 Attender: GENEVIEVE HEADLEY 11/10/2019 05:10:19 PM EST CHARTMAKER ([facility]) OutpatientOFFICE/OUTPATIENT VISIT, EST 10/16/2019 Attender: Michael HEADLEY 10/16/2019 04:37:10 PM EST CHARTMAKER ([facility]) Outpatient Attender: Umair Oden MD FP 10/10/2019 12:47:01 PM EST [facility] OutpatientOFFICE/OUTPATIENT VISIT, EST 09/01/2019 Attender: GENEVIEVE HEADLEY 09/01/2019 01:38:35 PM EST CHARTMAKER ([facility]) Medications Medication Brand Name Start Date Product Form Dose Route Admi nistrative Instructions Pharmacy Instructions Status Indications Reaction Description Data Source(s) Prednisone 20 MG Oral Tablet predniSONE 20 mg tablet predniS ONE 20 mg tablet 08/20/2020 12:00:00 AM EST 2 completed , Take 2 tablet orally Every day 08/20/2020 [facility] ([facility]) Amoxicillin 875 MG Oral Tablet amoxicillin 875 mg tabl et amoxicillin 875 mg tablet 06/28/2020 12:00:00 AM EDT 1 completed 08/20/2020 [facility] ([facility]) Diclofenac Sodium 0.01 MG/MG Topical Gel [Voltaren] Vo ltaren 1 % topical gel Voltaren 1 % topical gel 06/14/2020 12:00:00 AM EDT completed 06/28/2020 [facility]) Methocarbamol 500 MG Oral Tablet methocarbamoL 500 mg tablet methocarbamoL 500 mg tablet 03/17/2020 12:00:00 AM EDT 2 completed 06/14/2020 [facility] ([facility]) Acetaminophen 325 MG Oral Tablet [Tylenol] TylenoL 325 mg tablet TylenoL 325 mg tablet 03/17/2020 12:00:00 AM EDT completed 06/14/2020 [facility] ([facility]) Prednisone 10 MG Oral Tablet predniSONE 10 mg tablet predniS ONE 10 mg tablet 02/07/2020 12:00:00 AM EDT 1 completed 03/17/2020 [facility] ([facility]) Cephalexin 500 MG Oral Tablet cephALEXin 500 mg tablet cephA LEXin 500 mg tablet 02/07/2020 12:00:00 AM EDT 1 completed 03/17/2020 [facility] ([facility]) Prednisone 20 MG Oral Tablet predniSONE 20 mg tablet predniS ONE 20 mg tablet 11/10/2019 12:00:00 AM EST 2 completed 02/07/2020 [facility] ([facility]) Acetaminophen 325 MG Oral Tablet [Tylenol] TylenoL 325 mg tablet TylenoL 325 mg tablet 10/16/2019 12:00:00 AM EST completed 11/10/2019 [facility] ([facility]) 12 HR Dextromethorphan Hydrobromide 60 M G / Guaifenesin 1200 MG Extended Release Oral Tablet dextromethorphan-guaifenesin ER 60 mg-1,200 mg tab,extend release,12hr dextromethorphan-guaifenesin ER 60 mg-1, 200 mg tab,extend release,12hr 10/16/2019 12:00:00 AM EST 1 completed 11/10/2019 CHARTMAKER ([facility]) Pseudoephedrine Hydrochloride 30 MG Oral Tablet [Sudaf ed] Sudafed 30 mg tablet Sudafed 30 mg tablet 10/16/2019 12:00:00 AM EST completed 11/10/2019 CHARTMAKER ([facility]) Amoxicillin 875 MG / Clavulanate 125 MG Oral Tablet [Augmentin] Augmentin 875 mg-125 mg tablet Augmentin 875 mg-125 mg tablet 09/01/2019 12:00:00 AM EST 1 completed 10/16/2019 CHARTMAKER ([facility]) Ondansetron 4 MG Oral Tablet [Zofran] Zofran 4 mg tablet Zof ran 4 mg tablet 08/19/2018 12:00:00 AM EST 1 completed 09/01/2019 CHARTMAKER ([facility]) Insurance Providers Payer name Policy type / Coverage type Policy ID Covered republican ID Covered republican's relationship to baron Policy Baron Plan Information [facility] [id number] SP [id number] [facility] [id number] S [id number] [facility] [id number] Comme rcial Insurance [id number] [facility] [id number] Comme rcial Insurance [id number] ID IDENTIFICATION [id number] Other In surance [id number] Managed Care [facility] Community Plan P [id number] S [id number] Medicaid S [id number] S [id number] [facility] [id number] Comme rcial Insurance [id number] [facility] [id number] Comme rcial Insurance [id number] [facility] Health Maintenance Organization (HMO) [id number] Self [id number] Managed Care - [facility] P [id number] S [id number] [facility] [id number] Comme rcial Insurance [id number] MEDICAID [id number] SP [id number] [facility] [id number] SP [id number] UN COMM[facility] PL[facility] [id number] SP [id number] [facility] PL[facility] Comme rcial Insurance [facility] [id number] 18 [id number] MEDICAID [id number] SP [id number] SELF PAY UNAVAILABLE UNAVAILA BLE [facility] [id number] SP [id number] BLUE [place] [place] PLAN [id number] SP [id number] HMO BLUE [id number] SP [id number] HMO BLUE [id number] SP [id number] [employer] BC[employer] P [id number] S [id number] Problems, Conditions, and Diagnoses Code Display Name Description Problem Type Effective Dates Data Source(s) L50.9 Urticaria, unspecified Urticaria, unspecified (L50.9) 08/20/2020 [id number] 08/20/2020 09:03:40 AM EST CHARTMAKER ([facility]) R68.84 Jaw pain Jaw pain (R68.84) 08/20/2020 [id number] 06/28/2020 06:52:17 PM EDT - 08/20/2020 12:00:00 AM EST CHARTMAKER ([facility]) M79.661 Pain in right lower leg Pain in right lower leg (M79.661) 06/28/2020 [id number] 06/14/2020 06:49:30 PM EDT - 06/28/2020 12:00:00 AM ED T CHARTMAKER ([facility]) R50.9 Fever, unspecified Fever, unspecified (R50.9) 0 [id number] 04/30/2020 02:01:51 PM EDT - 06/14/2020 12:00:00 AM EDT CHARTMAKER ([facility]) R05 Cough Cough (R05) 06/14/2020 [id number] 2019 02:01:51 PM EDT - 06/14/2020 12:00:00 AM EDT CHARTMAKER ([facility]) J02.9 Acute pharyngitis, unspecified Acute pha ryngitis, unspecified (J02.9) 06/14/2020 [id number] 04/30/2020 02:01:51 PM EDT - 06/14/2020 12:00:00 AM EDT CHARTMAKER ([facility]) R19.7 Diarrhea, unspecified Diarrhea, unspecified (R19.7) [id number] 04/30/2020 02:01:51 PM EDT - 06/14/2020 12:00:00 AM EDT CHARTMAKER ([facility]) M79.10 Myalgia, unspecified site Myalgia, unspecified s ite (M79.10) 04/30/2020 [id number] 03/17/2020 06:18:00 PM EDT - 04/30/2020 12:00:00 AM ED T CHARTMAKER ([facility]) M54.9 Dorsalgia, unspecified Dorsalgia, unspecified (M54.9) 04/30/2020 [id number] 03/17/2020 06:18:00 PM EDT - 04/30/2020 12:00:00 AM EDT CHARTMAKER ([facility]) R21 Rash and other nonspecific skin eruption Rash and other nonspecific skin eruption (R21) 03/17/2020 [id number] 02/07/2020 02:21:06 PM EDT - 03/17/2020 12:00:00 AM EDT CHARTMAKER ([facility]) L03.116 Cellulitis of left lower limb Cellulitis of left lower limb (L03.116) 03/17/2020 [id number] 02/07/2020 02:21:06 PM EDT - 03/17/2020 12:00:00 AM EDT CHARTMAKER ([facility]) R09.1 Pleurisy Pleurisy (R09.1) 02/07/2020 [id number] 0 11/10/2019 05:10:19 PM EST - 02/07/2020 12:00:00 AM EDT CHARTMAKER ([facility]) R05 Cough Cough (R05) 11/10/2019 [id number] 2019 04:37:10 PM EST - 11/10/2019 12:00:00 AM EST CHARTMAKER ([facility]) R09.81 Nasal congestion Nasal congestion (R09.81) 11/10/2019 6 [id number] 10/16/2019 04:37:10 PM EST - 11/10/2019 12:00:00 AM EST CHARTMAKER ([facility]) J06.9 Acute upper respiratory infection, unspe cified Acute upper respiratory infection, unspecified (J06.9) 11/10/2019 [id number] 10/16/2019 04 :37:10 PM EST - 11/10/2019 12:00:00 AM EST CHARTMAKER ([facility]) L03.113 Cellulitis of right upper limb Celluliti s of right upper limb (L03.113) 10/16/2019 [id number] 09/01/2019 01:38:35 PM EST - 10/16/2019 12:00:00 AM EST CHARTMAKER ([facility]) F41.9 Anxiety disorder, unspecified Anxiety di sorder, unspecified (F41.9) 09/01/2019 [id number] 07/23/2019 06:33:02 PM EDT - 09/01/2019 12:00:00 AM EST CHARTMAKER ([facility]) R07.9 Chest pain, unspecified Chest pain, unspecified (R07.9) 09/01/2019 [id number] 07/23/2019 06:33:02 PM EDT - 09/01/2019 12:00:00 AM ES T CHARTMAKER ([facility]) R50.9 Fever, unspecified Fever, unspecified (R50.9) 9 [id number] 08/19/2018 06:59:13 PM EST - 09/01/2019 12:00:00 AM EST CHARTMAKER ([facility]) M79.10 Diffuse muscle tenderness Myalgia, unspecified s ite (M79.10) 09/01/2019 [id number] 08/19/2018 06:59:13 PM EST - 09/01/2019 12:00:00 AM ES T CHARTMAKER ([facility]) R11.2 Nausea with vomiting, unspecified Nausea with vomiting, unspecified (R11.2) 09/01/2019 [id number] 08/19/2018 06:59:13 PM EST - 09/01/2019 12:00:00 AM EST CHARTMAKER ([facility]) R19.7 Diarrhea, unspecified Diarrhea, unspecified (R19.7) [id number] 08/19/2018 06:59:13 PM EST - 09/01/2019 12:00:00 AM EST CHARTMAKER ([facility]) N39.0 Urinary tract infection, site not specif ied Urinary tract infection, site not specified (N39.0) 09/01/2019 [id number] 08/19/2018 06:59:13 PM EST - 09/01/2019 12:00:00 AM EST CHARTMAKER ([facility]) Surgeries/Procedures Procedure Description Date Indications Data Source(s) [facility] OFFICE REG SCHEDD EVN WK/HOLIDAY HRS 2019 12:00:00 AM EDT CHARTMAKER ([facility]) [facility] OFF[facility] REG SCHEDD EVN /HOL HRS 2019 12:00:00 AM EDT CHARTMAKER ([facility]) IAADIADOO STREPTOCOCCUS GROUP A 04/30/2020 12:00:00 AM EDT CHARTMAKER ([facility]) INFECTIOUS AGENT ANTIGEN DETECTION 04/30/2020 0 12:00:00 AM EDT CHARTMAKER ([facility]) ECG ROUTINE ECG W/LEAST 12 LDS W/I&R 03/17/2020 12:00: 00 AM EDT CHARTMAKER ([facility]) [facility] OFFICE REG SCHEDD EVN / HRS 2019 12:00:00 AM EDT CHARTMAKER ([facility]) Results ID Date Data Source [id number] 04/30/2020 05:37:00 PM EDT [facility] Name Value Range Interpretation Code Description Data Lay rce(s) Supporting Document(s) SARS-CoV-2 (COVID-19) [facility] This lab was ordered by [facility] and reported by [facility]. ID Date Data Source [id number] 05/03/2020 09:31:24 AM EDT [facility] - CORE SPECIMEN DESCRIPTION THROAT [facility] ULTURE RESULTS NORMAL THROAT GEOVANNY NEGATIVE FOR BETA HEMOLYTIC STREPTOCOCCI GROUPS A,C OR G.REPORT STATUS FINAL 05/03/2020 Name Value Range Interpretation Code Description Data Lay rce(s) Supporting Document(s) ID Date Data Source [id number] 04/30/2020 12:00:00 AM EDT CHARTMAKER ([facility]) Name Value Range Interpretation Code Description Data Lay rce(s) Supporting Document(s) SARS-CoV2 Rapid Antigen CHARTM ARUN ([facility]) This lab was ordered by [facility] are and reported by [facility]. ID Date Data Source [id number] 12/26/2019 10:55:00 AM EDT [facility] Name Value Range Interpretation Code Description Data Lay rce(s) Supporting Document(s) SARS CORONAVIRUS 2 RNA [facility] This lab was ordered by [facility] and reported by [facility]. Procedure Social History Code Duration Value Status Description Data Source(s ) Smoking 08/20/2020 12:00:00 AM EST Smoker, current status unkn own completed Smoker, current status unknown CHARTMAKER ([facility]) Smoking 06/28/2020 12:00:00 AM EDT Smoker, current status unkn own completed Smoker, current status unknown CHARTMAKER ([facility]) Smoking 06/14/2020 12:00:00 AM EDT Current every day smoker co mpleted Current every day smoker CHARTMAKER ([facility]) Smoking 04/30/2020 12:00:00 AM EDT Current every day smoker co mpleted Current every day smoker CHARTMAKER ([facility]) Smoking 11/10/2019 12:00:00 AM EST Current every day smoker co mpleted Current every day smoker CHARTMAKER ([facility]) Smoking 09/01/2019 12:00:00 AM EST Smoker, current status unkn own completed Smoker, current status unknown CHARTMAKER ([facility]) Vital Signs ID Date Data Source UNK Name Value Range Interpretation Code Description Data Source(s) Inhaled oxygen concentration 21 % 21 % CHARTSCKER ([facility]) Oxygen saturation in Arterial blood by Pulse oximetry 98 % 98 % CHARTMAKER ([facility]) Body mass index (BMI) [Ratio] 37.5208807330922 kg/m2 37.1330514143581 kg/m2 CHARTMAKER ([facility]) Body weight 210 [lb_av] 210 [lb_av] CHARTMAKER ([facility]) Body height 63 [in_i] 63 [in_i] CHARTMAKER ([facility]) Diastolic blood pressure 72 mm[Hg] 72 mm[Hg] CHARTMAKER ([facility]) Systolic blood pressure 110 mm[Hg] 110 mm[Hg] C HARTMAKER ([facility]) Respiratory rate 17 /min 17 /min CHARTMAK ER ([facility]) Heart rate 72 /min 72 /min CHARTMAKER ([facility]) Body temperature 97.2 [degF] 97.2 [degF] CHARTJosh SIMSER ([facility]) Inhaled oxygen concentration 21 % 21 % CHARTMAKER ([facility]) Oxygen saturation in Arterial blood by Pulse oximetry 97 % 97 % CHARTMAKER ([facility]) Body mass index (BMI) [Ratio] 36.5095171188842 kg/m2 36.0826944004676 kg/m2 CHARTMAKER ([facility]) Body weight 207.1875 [lb_av] 207.1875 [lb_av] C HARTMAKER ([facility]) Body height 63 [in_i] 63 [in_i] CHARTMAKER ([facility]) Heart rate 82 /min 82 /min CHARTMAKER ([facility]) Body temperature 98.2 [degF] 98.2 [degF] CHARTJosh SIMSER ([facility]) Diastolic blood pressure 74 mm[Hg] 74 mm[Hg] CHARTMAKER ([facility]) Systolic blood pressure 138 mm[Hg] 138 mm[Hg] C HARTMAKER ([facility]) Respiratory rate 17 /min 17 /min CHARTMAK ER ([facility]) Inhaled oxygen concentration 21 % 21 % CHARTMAKER ([facility]) Oxygen saturation in Arterial blood by Pulse oximetry 98 % 98 % CHARTMAKER ([facility]) Body mass index (BMI) [Ratio] 37.4220092162873 kg/m2 37.5070834965023 kg/m2 CHARTMAKER ([facility]) Body weight 210 [lb_av] 210 [lb_av] CHARTMAKER ([facility]) Body height 63 [in_i] 63 [in_i] CHARTMAKER ([facility]) Heart rate 63 /min 63 /min CHARTMAKER ([facility]) Body temperature 97 [degF] 97 [degF] CHARTMAK ER ([facility]) Oxygen saturation in Arterial blood by Pulse oximetry 97 % 97 % CHARTMAKER ([facility]) Body mass index (BMI) [Ratio] 36.1850308023460 kg/m2 36.8006546464515 kg/m2 CHARTMAKER ([facility]) Body weight 205 [lb_av] 205 [lb_av] CHARTMAKER ([facility]) Body height 63 [in_i] 63 [in_i] CHARTMAKER ([facility]) Heart rate 64 /min 64 /min CHARTMAKER ([facility]) Body temperature 97.9 [degF] 97.9 [degF] CHART ARUN ([facility]) Inhaled oxygen concentration 21 % 21 % CHARTMAKER ([facility]) Pain severity - Reported CHARTMAKER ([facility]) Diastolic blood pressure 90 mm[Hg] 90 mm[Hg] CHARTMAKER ([facility]) Systolic blood pressure 160 mm[Hg] 160 mm[Hg] C HARTSCKER ([facility]) Respiratory rate 16 /min 16 /min CHARTMAK ER ([facility]) Inhaled oxygen concentration 21 % 21 % CHARTMAKER ([facility]) Oxygen saturation in Arterial blood by Pulse oximetry 97 % 97 % CHARTMAKER ([facility]) Body weight 203 [lb_av] 203 [lb_av] CHARTMAKER ([facility]) Diastolic blood pressure 68 mm[Hg] 68 mm[Hg] CHARTMAKER ([facility]) Systolic blood pressure 132 mm[Hg] 132 mm[Hg] C HARTSCKER ([facility]) Heart rate 85 /min 85 /min CHARTMAKER ([facility]) Body temperature 99 [degF] 99 [degF] CHARTMAK ER ([facility]) Body mass index (BMI) [Ratio] 37.5933056714289 kg/m2 37.9002035645138 kg/m2 CHARTMAKER ([facility]) Body height 62 [in_i] 62 [in_i] CHARTMAKER ([facility]) Respiratory rate 16 /min 16 /min CHARTSCK ER ([facility]) Inhaled oxygen concentration 21 % 21 % CHARTMAKER ([facility]) Oxygen saturation in Arterial blood by Pulse oximetry 97 % 97 % CHARTSCKER ([facility]) Body weight 203 [lb_av] 203 [lb_av] CHARTSCKER ([facility]) Diastolic blood pressure 80 mm[Hg] 80 mm[Hg] CHARTMAKER ([facility]) Systolic blood pressure 122 mm[Hg] 122 mm[Hg] [facility]) Heart rate 84 /min 84 /min CHARTMAKER ([facility]) Body temperature 97.8 [degF] 97.8 [degF] PARK DIAS ([facility])
--- NOTE | 2020-10-14 23:21 | REPVR ---
PROCEDURE INFORMATION: Exam: US Duplex Left Lower Extremity Veins, Limited Exam date and time: 10/14/2020 11:00 PM Age: 30 years old Clinical indication: Pain; Leg, upper; Left; Additional info: Pain/swelling TECHNIQUE: Imaging protocol: Real-time Duplex ultrasound of the Left Lower Extremity with 2-D irby scale, color Doppler flow and spectral waveform analysis with image documentation. Limited exam focused on the left lower extremity veins. COMPARISON: No relevant prior studies available. FINDINGS: Left deep veins: Unremarkable. The common femoral, femoral and popliteal veins are patent without thrombus. Normal compressibility, augmentation response and Doppler waveforms. Left superficial veins: Unremarkable. Saphenofemoral junction is patent without thrombus. Soft tissues: Unremarkable. IMPRESSION: No sonographic evidence of deep vein thrombosis. Electronically signed by: Wesley Ramon On 10/14/2020 23:21:12 PM
[2020-10-14 23:25] VITALS: BP 138/78
== END 2020-10-14 23:37 | disposition home or self-care (01) ==
LOC: M ED 20:50
DX: S76.112A Strain of left quadriceps muscle, fascia and tendon, initial encounter (principal); W18.40XA Slipping, tripping and stumbling without falling, unspecified, initial encounter; Y92.89 Other specified places as the place of occurrence of the external cause; F41.9 Anxiety disorder, unspecified; Z88.8 Allergy status to other drugs, medicaments and biological substances; F17.210 Nicotine dependence, cigarettes, uncomplicated

== ENCOUNTER → 2020-10-22 | Outpatient (REF) | payer OTHER ==
[2020-10-22 13:52] LABS: FREE T4 0.93 NG/DL (0.76-1.46); THYROID STIMULATING HORMONE 1.21 uIU/ML (0.358-3.740)
== END ==
LOC: M SFHCADAM 10:37
PROVIDERS: ATTEND Physician Assistant Medical
DX: F41.1 Generalized anxiety disorder (principal); E66.01 Morbid (severe) obesity due to excess calories

== ENCOUNTER 2021-01-18 20:39 | Emergency (ER) | payer OTHER ==
[~2021-01-18] VITALS: Ht 160 cm; Wt 95.0 kg
[2021-01-18 20:40] VITALS: BP 136/85
[2021-01-18] MEDS ORDERED: LEXA1TAB PO (20:50)
[2021-01-18] MEDS ORDERED: NITR100C2 PO (20:50)
[2021-01-18 22:33] LABS: BASO % 0.4 % (0.0-1.0); EOS # 0.5 10^3/uL (0.0-0.5); EOS % 4.9 % (0.0-3.0); HEMATOCRIT 41.6 % (36.0-47.0); HEMOGLOBIN 13.9 g/dl (12.0-15.5); LYMPH # 3.4 10^3/uL (1.5-5.0); LYMPH % 33.2 % (24.0-44.0); MEAN CORPUSCULAR HEMOGLOBIN 29.3 pg (27.0-33.0); MEAN CORPUSCULAR HGB CONC 33.4 g/dl (32.0-36.5); MEAN CORPUSCULAR VOLUME 87.6 fl (80.0-96.0); MONO # 0.8 10^3/uL (0.0-0.8); MONO % 7.6 % (2.0-8.0); NEUTROPHILS # 5.5 10^3/uL (1.5-8.5); NEUTROPHILS % 53.5 % (36.0-66.0); PLATELET COUNT, AUTOMATED 259 10^3/uL (150-450); RED BLOOD COUNT 4.75 10^6/uL (4.00-5.40); WHITE BLOOD COUNT 10.3 10^3/uL (4.0-10.0)
--- NOTE | 2021-01-19 00:02 | REPVR ---
PROCEDURE INFORMATION: Exam: US Pelvis Complete, Transabdominal and US Pelvis, Transvaginal and US Duplex Artery and Vein, Ovaries, Complete Exam date and time: 01/18/2021 11:17 PM Age: 30 years old Clinical indication: Pelvic pain; Additional info: Abdominal pain on llq TECHNIQUE: Imaging protocol: Real-time transabdominal and transvaginal pelvic ultrasound (complete) with image documentation. Transvaginal imaging was used for better evaluation of the endometrium, adnexa, and/or cervix. Real-time duplex ultrasound scan of the arterial and venous flow of the ovaries with B-mode, color Doppler flow and spectral waveform analysis. COMPARISON: US PELVIC NON-OB COMPLETE 05/24/2019 10:42 PM FINDINGS: Uterus/cervix: The anteverted uterus is normal in appearance and measures 7.8 cm x 4.5 cm x 6 cm. The endometrium is normal and measures 9 mm in thickness. No myometrial mass is present. Right adnexa: The right ovary measures 4.3 cm x 3.2 cm x 3.4 cm and contains a dominant follicular cyst that measures 2.4 cm x 2 cm x 1.7 cm, for which follow-up is not necessary. The arterial and venous color Doppler flow and spectral waveforms within the right ovary are within normal limits, without evidence for right ovarian torsion. Left adnexa: The left ovary is normal in appearance. No left ovarian cyst or left adnexal mass is noted. The left ovary measures 3.5 cm x 2.6 cm x 2.7 cm. The arterial and venous color Doppler flow and spectral waveforms within the left ovary are within normal limits, without evidence for left ovarian torsion. Intraperitoneal space: No free fluid is seen from the images obtained. Urinary bladder: The urinary bladder is unremarkable. IMPRESSION: 1. Normal ultrasound of the uterus and ovaries. No evidence for ovarian torsion. 2. 2.4 cm x 2 cm x 1.7 cm dominant follicular cyst in the right ovary, for which follow-up is not necessary. Electronically signed by: Les Gustafson On 01/19/2021 00:01:49 AM
[2021-01-19] MEDS ORDERED: PYRI1TAB5 PO (00:10)
[2021-01-19 00:50] LABS: CHLAMYDIA DNA AMPLIFICATION NEGATIVE (NEGATIVE); GC DNA AMPLIFICATION NEGATIVE (NEGATIVE)
== END 2021-01-19 00:42 | disposition home or self-care (01) ==
LOC: M ED 20:39
DX: N30.90 Cystitis, unspecified without hematuria (principal); N83.291 Other ovarian cyst, right side; F17.210 Nicotine dependence, cigarettes, uncomplicated; Z88.8 Allergy status to other drugs, medicaments and biological substances

== ENCOUNTER 2021-03-30 11:53 | Emergency (ER) | payer OTHER ==
[~2021-03-30] VITALS: Ht 157.5 cm; Wt 93.2 kg
[~2021-03-30 11:53] MED LIST changes: +LEXA1TAB PO; +NITR100C2 PO
[2021-03-30 13:15] LABS: BASO # 0.1 10^3/uL (0.0-0.2); BASO % 0.8 % (0.0-1.0); EOS # 0.4 10^3/uL (0.0-0.5); EOS % 5.6 % (0.0-3.0); HEMOGLOBIN 14.9 g/dl (12.0-15.5); LYMPH # 2.4 10^3/uL (1.5-5.0); LYMPH % 32.1 % (24.0-44.0); MEAN CORPUSCULAR HEMOGLOBIN 29.4 pg (27.0-33.0); MEAN CORPUSCULAR HGB CONC 33.1 g/dl (32.0-36.5); MEAN CORPUSCULAR VOLUME 88.8 fl (80.0-96.0); MONO # 0.6 10^3/uL (0.0-0.8); MONO % 7.7 % (2.0-8.0); NEUTROPHILS % 53.5 % (36.0-66.0); PLATELET COUNT, AUTOMATED 265 10^3/uL (150-450); RED BLOOD COUNT 5.07 10^6/uL (4.00-5.40); WHITE BLOOD COUNT 7.4 10^3/uL (4.0-10.0)
[2021-03-30 13:42] LABS: ALBUMIN 3.9 GM/DL (3.2-5.2); ALT/SGPT 31 U/L (12-78); BILIRUBIN,TOTAL 0.2 MG/DL (0.2-1.0); BLOOD UREA NITROGEN 7 MG/DL (7-18); CALCIUM LEVEL 9.4 MG/DL (8.5-10.1); CARBON DIOXIDE LEVEL 28 MEQ/L (21-32); CHLORIDE LEVEL 106 MEQ/L (98-107); GLOMERULAR FILTRATION RATE > 60.0 (>60); GLUCOSE, FASTING 84 MG/DL (70-100); POTASSIUM SERUM 4.7 MEQ/L (3.5-5.1); SODIUM LEVEL 141 MEQ/L (136-145); TOTAL PROTEIN 7.4 GM/DL (6.4-8.2)
[2021-03-30] MEDS ORDERED: ACETAMINOPHEN 325 MG TAB PO ONE (15:00)
[2021-03-30] MEDS ORDERED: KETOROLAC 30 MG/ML 1ML VIAL IV ONE (15:00)
[2021-03-30] MEDS ORDERED: NS 1,000 ML IV ONE (15:00)
[2021-03-30 15:34] LABS: FREE T3 3.3 PG/ML (2.2-4.0); FREE T4 0.96 NG/DL (0.76-1.46)
[2021-03-30 17:00] VITALS: BP 123/64
--- NOTE | 2021-03-30 20:13 | ECGEPIP ---
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
== END 2021-03-30 17:15 | disposition home or self-care (01) ==
LOC: M ED 11:53
DX: E86.0 Dehydration (principal); R00.1 Bradycardia, unspecified; F17.210 Nicotine dependence, cigarettes, uncomplicated; Z79.899 Other long term (current) drug therapy; Z88.1 Allergy status to other antibiotic agents; Z88.8 Allergy status to other drugs, medicaments and biological substances
CPT/HCPCS: 36415; 80053; 84439; 84443; 84481; 85025; 93005; 96360; 96361; 99284; J1885

== ENCOUNTER → 2021-06-09 | Outpatient (CLI) | payer OTHER | LOC: M LABSMTC 09:48 | PROVIDERS: ATTEND Pediatrics | DX: Z11.52 Encounter for screening for COVID-19 (principal); Z20.822 Contact with and (suspected) exposure to COVID-19 ==

== ENCOUNTER → 2024-02-26 | Outpatient (CLI) | payer OTHER | LOC: M PLAIMG 13:55 | PROVIDERS: ATTEND Physician Assistant Surgical | DX: M51.36 Other intervertebral disc degeneration, lumbar region (principal); M47.896 Other spondylosis, lumbar region; M53.3 Sacrococcygeal disorders, not elsewhere classified ==

== ENCOUNTER → 2024-06-11 | Outpatient (CLI) | payer OTHER | LOC: M WHC 10:49 | PROVIDERS: ATTEND Physician Assistant | DX: N63.42 Unspecified lump in left breast, subareolar (principal) ==

== ENCOUNTER 2024-07-05 12:11 | Emergency (ER) | payer OTHER ==
[~2024-07-05] VITALS: Ht 160 cm; Wt 87.5 kg
[2024-07-05] MEDS ORDERED: BUPR15TASR (12:24)
[2024-07-05] MEDS ORDERED: CLIN-250 (12:24)
[2024-07-05 13:12] LABS: BASO % 0.3 % (0.0-1.0); EOS # 0.2 10^3/uL (0.0-0.5); EOS % 2.2 % (0.0-3.0); HEMATOCRIT 41.7 % (36.0-47.0); HEMOGLOBIN 14.5 g/dl (12.0-15.5); LYMPH # 2.1 10^3/uL (1.5-5.0); LYMPH % 22.4 % (24.0-44.0); MEAN CORPUSCULAR HEMOGLOBIN 30.6 pg (27.0-33.0); MEAN CORPUSCULAR HGB CONC 34.8 g/dl (32.0-36.5); MONO # 0.8 10^3/uL (0.0-0.8); MONO % 8.8 % (2.0-8.0); NEUTROPHILS # 6.1 10^3/uL (1.5-8.5); NEUTROPHILS % 66.1 % (36.0-66.0); PLATELET COUNT, AUTOMATED 236 10^3/uL (150-450); RED BLOOD COUNT 4.74 10^6/uL (4.00-5.40); WHITE BLOOD COUNT 9.2 10^3/uL (4.0-10.0)
[2024-07-05 13:33] LABS: HCG, SERUM QUALITATIVE NEGATIVE (NEGATIVE)
[2024-07-05 13:38] LABS: ERYTHROCYTE SEDIMENTATION RATE 16 mm/hr (0-20)
[2024-07-05 15:14] VITALS: BP 139/92; TEMP 98.7; O2SAT 100
[2024-07-05] MEDS: IBUPROFEN 600MG TAB PO ONE (15:22)
== END 2024-07-05 17:20 | disposition home or self-care (01) ==
LOC: M ED 12:11
DX: L03.313 Cellulitis of chest wall (principal); N60.02 Solitary cyst of left breast; F32.A Depression, unspecified; F17.200 Nicotine dependence, unspecified, uncomplicated; Z79.899 Other long term (current) drug therapy; Z88.1 Allergy status to other antibiotic agents; Z88.6 Allergy status to analgesic agent

== ENCOUNTER 2024-10-06 11:07 | Inpatient (IN) | payer OTHER ==
[~2024-10-06] VITALS: Ht 160 cm; Wt 89.9 kg
[~2024-10-06 11:07] MED LIST changes: +BUPR15TASR PO; +CLIN-250 PO
[2024-10-06 12:42] LABS: BASO # 0.1 10^3/uL (0.0-0.2); BASO % 0.4 % (0.0-1.0); EOS # 0.3 10^3/uL (0.0-0.5); EOS % 2.7 % (0.0-3.0); HEMATOCRIT 42.8 % (36.0-47.0); HEMOGLOBIN 14.9 g/dl (12.0-15.5); LYMPH # 2.6 10^3/uL (1.5-5.0); LYMPH % 20.7 % (24.0-44.0); MEAN CORPUSCULAR HEMOGLOBIN 30.8 pg (27.0-33.0); MEAN CORPUSCULAR HGB CONC 34.8 g/dl (32.0-36.5); MEAN CORPUSCULAR VOLUME 88.4 fl (80.0-96.0); MONO # 0.8 10^3/uL (0.0-0.8); MONO % 6.4 % (2.0-8.0); NEUTROPHILS # 8.7 10^3/uL (1.5-8.5); NEUTROPHILS % 69.5 % (36.0-66.0); PLATELET COUNT, AUTOMATED 290 10^3/uL (150-450); RED BLOOD COUNT 4.84 10^6/uL (4.00-5.40); WHITE BLOOD COUNT 12.6 10^3/uL (4.0-10.0)
[2024-10-06 12:54] LABS: ERYTHROCYTE SEDIMENTATION RATE 32 mm/hr (0-20)
[2024-10-06 12:58] LABS: ALBUMIN 3.7 G/DL (3.2-5.2); ALKALINE PHOSPHATASE 54 U/L (35-104); ALT/SGPT 17 U/L (7.0-40); AST/SGOT 10 U/L (<34); BILIRUBIN,DIRECT < 0.1 MG/DL (<0.4); BILIRUBIN,TOTAL 0.2 MG/DL (0.3-1.2); BLOOD UREA NITROGEN 11 MG/DL (9-23); C REACTIVE PROTEIN QUANTITATIV 1.15 MG/DL (<1.0); CALCIUM LEVEL 9.1 MG/DL (8.5-10.1); CARBON DIOXIDE LEVEL 23 MMOL/L (20-31); CHLORIDE LEVEL 109 MMOL/L (98-107); CREATININE FOR GFR 0.67 MG/DL (0.55-1.30); GLOMERULAR FILTRATION RATE > 60.0 (>60); GLUCOSE, FASTING 94 MG/DL (60-100); POTASSIUM SERUM 3.9 MMOL/L (3.5-5.1); SODIUM LEVEL 142 MMOL/L (136-145); TOTAL PROTEIN 7.4 G/DL (5.7-8.2)
[2024-10-06 13:09] LABS: PROCALCITONIN <0.04 ng/ml
[2024-10-06] MEDS ORDERED: LIDOCAINE 1% MDV 20ML VIAL As Ordered ONE (15:26)
[2024-10-06] MEDS: VANCOMYCIN/WATER FOR INJ (PEG) 1,750 MG in IV 1 EA IV ONE (15:30)
[2024-10-06] MEDS ORDERED: MOM 30ML SUSPENSION UDC PO PRN (16:10)
[2024-10-06] MEDS ORDERED: MAALOX 30 ML SUSP *UDC PO PRN (16:10)
[2024-10-06] MEDS: NS (Normal Saline) 0.9% 1,000 ML IV SCH (16:50)
[2024-10-06] MEDS ORDERED: ONDANSETRON 4MG 2ML VIAL As Ordered ONE (16:56)
[2024-10-06] MEDS ORDERED: MORPHINE 2 MG/ML 1ML VIAL As Ordered ONE (16:57)
[2024-10-06] MEDS ORDERED: HOME MED LIST COMPLETE! XX SCH (17:00)
[2024-10-06] MEDS: ONDANSETRON 4MG 2ML VIAL IV PRN (17:10)
[2024-10-06] MEDS: MORPHINE 2 MG/ML 1ML VIAL IV PRN (17:10)
[2024-10-06 18:02] VITALS: BP 141/80; TEMP 97.1; O2SAT 96
[2024-10-06 19:21] VITALS: BP 131/65; TEMP 97.7; O2SAT 98
[2024-10-06] MEDS: ACETAMINOPHEN 325 MG TAB PO PRN (19:48)
[2024-10-06] MEDS: DOCUSATE SODIUM 100MG CAPSULE PO SCH (20:57)
[2024-10-06] MEDS: HEPARIN SOD (PORCINE) 5000UNITS/ML 1ML VIAL/SYRINGE SC SCH (21:40)
[2024-10-06 23:46] VITALS: BP 122/68; TEMP 97.6
[2024-10-06] MEDS: VANCOMYCIN HCL 1,000 MG, VIAL MATE ADAPTER 1 EACH in NS 250 ML IV SCH (23:51)
[2024-10-07 03:24] VITALS: BP 124/64; TEMP 97.3; O2SAT 95
[2024-10-07 07:57] LABS: BLOOD UREA NITROGEN 10 MG/DL (9-23); C REACTIVE PROTEIN QUANTITATIV 1.99 MG/DL (<1.0); CALCIUM LEVEL 8.2 MG/DL (8.5-10.1); CARBON DIOXIDE LEVEL 25 MMOL/L (20-31); CHLORIDE LEVEL 111 MMOL/L (98-107); CREATININE FOR GFR 0.61 MG/DL (0.55-1.30); GLOMERULAR FILTRATION RATE > 60.0 (>60); GLUCOSE, FASTING 80 MG/DL (60-100); POTASSIUM SERUM 4.3 MMOL/L (3.5-5.1); SODIUM LEVEL 142 MMOL/L (136-145)
[2024-10-07 08:14] LABS: BASO % 0.4 % (0.0-1.0); EOS # 0.3 10^3/uL (0.0-0.5); EOS % 3.2 % (0.0-3.0); HEMATOCRIT 38.7 % (36.0-47.0); HEMOGLOBIN 13.1 g/dl (12.0-15.5); LYMPH # 1.9 10^3/uL (1.5-5.0); LYMPH % 21.5 % (24.0-44.0); MEAN CORPUSCULAR HEMOGLOBIN 30.2 pg (27.0-33.0); MEAN CORPUSCULAR HGB CONC 33.9 g/dl (32.0-36.5); MEAN CORPUSCULAR VOLUME 89.2 fl (80.0-96.0); MONO # 0.5 10^3/uL (0.0-0.8); MONO % 5.9 % (2.0-8.0); NEUTROPHILS # 6.2 10^3/uL (1.5-8.5); NEUTROPHILS % 68.7 % (36.0-66.0); PLATELET COUNT, AUTOMATED 266 10^3/uL (150-450); RED BLOOD COUNT 4.34 10^6/uL (4.00-5.40); VANCOMYCIN RANDOM 10.4 UG/ML
[2024-10-07] MEDS: ESCITALOPRAM OXALATE 10 MG TAB (LEXAPRO) PO SCH (10:24)
[2024-10-07] MEDS: buPROPion **SR TABLET** (ZYBAN) 150MG PO SCH (10:25)
[2024-10-07] MEDS: VANCOMYCIN HCL 1,250 MG, VIAL MATE ADAPTER 1 EACH in NS 250 ML IV SCH (10:25)
[2024-10-07] MEDS: AMPICILLIN SOD/SULBACTAM SOD 3 GM in SODIUM CHLORIDE 0.9% 100ML ADD 100 ML IV SCH (12:51)
[2024-10-07 14:00] VITALS: BP 141/76; TEMP 97.2; O2SAT 96
[2024-10-07 21:20] VITALS: BP 134/72; TEMP 97.9; O2SAT 98
[2024-10-08 04:07] VITALS: BP 130/68; TEMP 97.5; O2SAT 98
[2024-10-08 06:50] LABS: BASO % 0.5 % (0.0-1.0); EOS # 0.4 10^3/uL (0.0-0.5); EOS % 5.4 % (0.0-3.0); HEMATOCRIT 35.7 % (36.0-47.0); LYMPH # 1.9 10^3/uL (1.5-5.0); LYMPH % 29.4 % (24.0-44.0); MEAN CORPUSCULAR HEMOGLOBIN 29.9 pg (27.0-33.0); MEAN CORPUSCULAR HGB CONC 33.6 g/dl (32.0-36.5); MONO # 0.6 10^3/uL (0.0-0.8); MONO % 9.3 % (2.0-8.0); NEUTROPHILS # 3.6 10^3/uL (1.5-8.5); NEUTROPHILS % 55.1 % (36.0-66.0); PLATELET COUNT, AUTOMATED 245 10^3/uL (150-450); RED BLOOD COUNT 4.01 10^6/uL (4.00-5.40); WHITE BLOOD COUNT 6.5 10^3/uL (4.0-10.0)
[2024-10-08 07:16] LABS: BLOOD UREA NITROGEN 10 MG/DL (9-23); C REACTIVE PROTEIN QUANTITATIV 2.05 MG/DL (<1.0); CALCIUM LEVEL 8.8 MG/DL (8.5-10.1); CARBON DIOXIDE LEVEL 25 MMOL/L (20-31); CHLORIDE LEVEL 111 MMOL/L (98-107); CREATININE FOR GFR 0.53 MG/DL (0.55-1.30); GLOMERULAR FILTRATION RATE > 60.0 (>60); GLUCOSE, FASTING 87 MG/DL (60-100); POTASSIUM SERUM 4.4 MMOL/L (3.5-5.1); SODIUM LEVEL 142 MMOL/L (136-145)
[2024-10-08] MEDS ORDERED: AMOX875T2 PO (11:46)
== END 2024-10-08 12:38 | disposition home or self-care (01) | DRG 385 ==
LOC: M ED 11:07 → M ED INP 16:48 → M MSPAV 10-07 14:13
PROVIDERS: ADMIT Internal Medicine; ATTEND Internal Medicine
PROC: 0HBU3ZX Excision of Left Breast, Percutaneous Approach, Diagnostic (ICD-10-PCS; principal; 2024-10-06 15:30)
DX: N61.1 Abscess of the breast and nipple (principal); E66.01 Morbid (severe) obesity due to excess calories; F39 Unspecified mood [affective] disorder; F41.9 Anxiety disorder, unspecified; Z68.35 Body mass index [BMI] 35.0-35.9, adult; F17.200 Nicotine dependence, unspecified, uncomplicated; Z79.899 Other long term (current) drug therapy; Z88.8 Allergy status to other drugs, medicaments and biological substances; N61.0 Mastitis without abscess

== ENCOUNTER → 2024-10-15 | Outpatient (REF) | payer OTHER ==
[~2024-10-15] MED LIST changes: +AMOX875T2 PO
[2024-10-15 18:44] LABS: BASO % 0.6 % (0.0-1.0); EOS # 0.4 10^3/uL (0.0-0.5); EOS % 6.6 % (0.0-3.0); HEMATOCRIT 44.1 % (36.0-47.0); HEMOGLOBIN 14.7 g/dl (12.0-15.5); LYMPH # 2.9 10^3/uL (1.5-5.0); LYMPH % 44.2 % (24.0-44.0); MEAN CORPUSCULAR HEMOGLOBIN 30.1 pg (27.0-33.0); MEAN CORPUSCULAR HGB CONC 33.3 g/dl (32.0-36.5); MEAN CORPUSCULAR VOLUME 90.2 fl (80.0-96.0); MONO # 0.6 10^3/uL (0.0-0.8); MONO % 9.3 % (2.0-8.0); NEUTROPHILS # 2.6 10^3/uL (1.5-8.5); NEUTROPHILS % 39.1 % (36.0-66.0); PLATELET COUNT, AUTOMATED 351 10^3/uL (150-450); RED BLOOD COUNT 4.89 10^6/uL (4.00-5.40); WHITE BLOOD COUNT 6.5 10^3/uL (4.0-10.0)
[2024-10-15 18:58] LABS: ERYTHROCYTE SEDIMENTATION RATE 29 mm/hr (0-20)
== END ==
LOC: M SFHCADAM 11:20
PROVIDERS: ATTEND Physician Assistant Medical
DX: N60.02 Solitary cyst of left breast (principal); A48.0 Gas gangrene; F17.210 Nicotine dependence, cigarettes, uncomplicated

== ENCOUNTER → 2025-05-27 | Outpatient (REF) | payer OTHER ==
[2025-05-27 17:48] LABS: APPEARANCE, URINE CLEAR (CLEAR); BACTERIA, URINE AUTO NEGATIVE (NEGATIVE); BILIRUBIN, URINE AUTO NEGATIVE (NEGATIVE); BLOOD, URINE BLOOD NEGATIVE (NEGATIVE); GLUCOSE, URINE (UA) AUTO NEGATIVE (NEGATIVE); KETONE, URINE AUTO NEGATIVE (NEGATIVE); LEUKOCYTE ESTERASE, URINE AUTO NEGATIVE (NEGATIVE); NITRITE, URINE AUTO NEGATIVE (NEGATIVE); PROTEIN, URINE AUTO NEGATIVE (NEGATIVE); RBC, URINE AUTO 0 /HPF (0-3); SPECIFIC GRAVITY URINE AUTO 1.003 (1.002-1.035); SQUAMOUS EPITHELIAL CELL UR AU 1 /HPF (0-6); UROBILINOGEN, URINE AUTO 0.2 mg/dL (0.0-2.0); WBC, URINE AUTO 0 /HPF (0-3)
== END ==
LOC: M SFHCADAM 17:11
PROVIDERS: ATTEND Physician Assistant Medical
DX: R30.0 Dysuria (principal)

== ENCOUNTER → 2025-07-09 | Outpatient (REF) | payer OTHER ==
[2025-07-09 16:45] LABS: PLATELET COUNT, AUTOMATED 317 10^3/uL (150-450)
[2025-07-09 16:50] LABS: INR 0.87
== END ==
LOC: M LABDRWAD 16:25
PROVIDERS: ATTEND Physician Assistant Surgical
DX: Z01.818 Encounter for other preprocedural examination (principal)

== ENCOUNTER 2025-07-13 21:05 | Emergency (ER) | payer OTHER ==
[~2025-07-13] VITALS: Ht 160 cm; Wt 89.4 kg
[2025-07-13 21:09] VITALS: BP 148/81; TEMP 97.3; O2SAT 96
== END 2025-07-13 23:44 | disposition left against medical advice (07) ==
LOC: M ED 21:05
DX: Z53.21 Procedure and treatment not carried out due to patient leaving prior to being seen by health care provider (principal)